=== PATIENT | female | born 1945 | race Caucasian/White ===

== ENCOUNTER → 2018-04-23 | Outpatient (CLI) | payer MEDICARE, OTHER | LOC: M WHC 08:58 | DX: M85.80 Other specified disorders of bone density and structure, unspecified site (principal); Z78.0 Asymptomatic menopausal state | CPT/HCPCS: 77080 ==

== ENCOUNTER → 2018-06-13 | Outpatient (REF) | payer MEDICARE, OTHER ==
[~2018-06-13] MED LIST: ACTO35TA9 PO; CALC600T60 PO; HYDR25TAB PO; LOSA100T50 PO; METO1TAB33 PO; MULTCAP PO; VYTO10TA22 PO
== END ==
LOC: M SFHCLERA 19:14
PROVIDERS: ATTEND Dermatology
DX: D22.72 Melanocytic nevi of left lower limb, including hip (principal)

== ENCOUNTER → 2019-06-13 | Outpatient (REF) | payer MEDICARE, OTHER ==
[~2019-06-13] MED LIST changes: +VESI5TAB2 PO
== END ==
LOC: M LAB REF 18:22
PROVIDERS: ATTEND Dermatology
DX: L57.0 Actinic keratosis (principal)

== ENCOUNTER → 2019-09-10 | Outpatient (REF) | payer MEDICARE, OTHER | LOC: M LAB REF 18:53 | PROVIDERS: ATTEND Dermatology | DX: L57.0 Actinic keratosis (principal) ==

== ENCOUNTER → 2020-04-03 | Outpatient (CLI) | payer MEDICARE, OTHER ==
[~2020-04-03] MED LIST changes: +LETR2.5T2 PO
--- NOTE | 2020-04-03 15:16 | RADONC.CN ---
Radiation Oncology Hx/Consult Radiation Oncology Consult Date of Service: Apr 03, 2020 Pt Identifier Cindy Cardozo is a 74 year old female with a history of pT2N0(sn)M0 ER/OK- HER2+ right breast cancer s/p lumpectomy and SLNB in 2008, followed by adjuvant chemotherapy, HER2-directed systemic therapy, and WBI to 48.6 Gy in 27 fractions with an additional 12 Gy in 6 fractions to the tumor bed completed 07/15/09. She has recently been diagnosed with a mammographically detected, phenotypically distinct, second right breast cancer s/p lumpectomy on 03/03/20 @ [facility], [id number] ER/OK+ HER2- Grade 2 with negative margins. She is seen today to consider adjuvant reirradiation of the right breast. Diagnosis/Treatment History Oncologic History 12/03/08 Right lumpectomy SLNB pT2N0(sn)M0 ER/OK- HER2+ Grade 2. 4.5 cm 04/25/09 TP chemotherapy complete 07/15/09 Completed WBI 48.6 Gy in 27 fractions and 12 Gy in 6 fractions to the nancy or bed 12/18/19 Right screening mammogram with calcifications lower inner breast 01/22/20 Biopsy at [facility] with IDC ER/OK+ HER2- and DCIS 03/03/20 Lumpectomy @ [facility] [id number] Grade 2 negative margins Interval History Feels well postoperatively. No pain, notes tender seroma. Does not like the appearance of the right breast now postoperatively with the lumpectomy scar midline. Notes the shape and lie of the right breast is asymmetric compared to the left. Interested in referral for reconstruction. Has never met with a plastic surgeon previously. She reports no RUE swelling or impaired ROM. Her appetite is good and her weight is stable. She reports minimal skin reaction with her prior course of RT in 2008-. Also notes she has a cataract surgery pending. Past Medical History: HTN Cataracts Arthritis Breast history: Menses @ 11 first @ 20 Menopause @ 59 HRT x 5 years OCP x 4 years Past Surgical History: Knee repleacemetn RT 2019 Family History: Sister breast cancer Social History: Non smoker Non drinker Allergies / Meds Allergies: Coded Allergies: No Known Allergies (Verified , 12/03/08) Home Meds Reported Medications Solifenacin Succinate (Vesicare) 5 Mg Tablet, 5 MG PO DAILY for 30 Days, #30 TAB 04/11/19 Multivitamin (Multivitamins) 1 Cap Cap, 1 CAP PO DAILY for 30 Days, #30 CAP 03/15/18 Calcium Carbonate (Calcium) 600 Mg Tab, 1200 MG PO BID, TAB 03/15/18 Ezetimibe/Simvastatin (Vytorin 10-20 mg Tablet) 1 Tab Tab, 1 TAB PO DAILY for 30 Days, #30 TAB 03/15/18 Metoprolol Succinate (Metoprolol Succinate) 100 Mg Tab, 100 MG PO DAILY, TAB 03/15/18 Hydrochlorothiazide (Hydrochlorothiazide) 25 Mg Tab, 25 MG PO DAILY, TAB 03/15/18 Risedronate Sodium (Actonel) 35 Mg Tab, 35 MG PO 1XWK, TAB 03/15/18 Losartan Potassium (Losartan Potassium) 100 Mg Tab, 100 MG PO DAILY for 30 Days, #30 TAB 03/15/18 Review of Systems Constitutional: Denies: Chills, Fever, Night Sweats Eyes: Denies: Pain, Vision change HEENT: Denies: Head Aches, Dysphagia, Sore Throat Skin: Denies: Rash, Lesions, Bruising Pulmonary: Denies: Dyspnea, Cough Cardiovascular: Denies: Chest Pain, Palpitations, Edema Gastrointestinal: Denies: Nausea, Vomiting, Abdominal Pain, Diarrhea Genitourinary: Denies: Dysuria, Frequency, Incontinence, Hematuria, Retention, Other Symptoms Hematologic: Denies: Bruising, Petecchia, Enlarged Lymph Nodes Musculoskeletal: Denies: Neck pain, Back pain Neurological: Denies: Weakness, Numbness, Incoordination Psych: Reports: Mood Normal; Denies: Memory Issues, Thoughts of Self Harm Vital Signs Ht 63" Wt 190 lb BMI 33 P 88 RR 18 BP 132/81 O2 97% Pain 0 Fatigue 0 General Exam: Positive: Alert, Cooperative, No Acute Distress Eye Exam: Positive: PERRLA, EOMI ENT EXAM: Positive: Mucous membr. moist/pink, Pharynx Normal Neck Exam: Negative: Thyromegaly, Lymphadenopathy Chest Exam: Positive: Normal air movement; Negative: Rales, Rhonchi, Wheezing Heart Exam: Positive: Rate Normal, Regular Rhythm Breast Exam: Negative: Symmetric Bilaterally (Left breast ptotic, right breast sits several cm higher than left), Lumps or Masses (Palpable seroma on right. No diffuse fibrosis or skin changes post-RT on right. ), Nipple Retraction, Nipple Discharge, Skin Changes, Other Breast Findings (No axillary masses BL) Abdomen Exam: Positive: Soft; Negative: Tenderness, Mass Extremity Exam: Negative: Edema, Tenderness Skin Exam: Positive: Nl turgor and temperature; Negative: Rash Neuro Exam: Positive: Normal Gait, Normal Speech, Cranial Nerves 3-12 NL Diagnostic and Laboratory Diagnostic Review Radiologic images, relevant labs and pathology reports were personally reviewed and discussed with Ms. Cardozo. Assessment and Plan Impression Ms. Cardozo is a 74 year old female with a history of pT2N0(sn)M0 ER/OK- HER2+ right breast cancer s/p lumpectomy and SLNB in 2008, followed by adjuvant chemotherapy, HER2-directed systemic therapy, and WBI to 48.6 Gy in 27 fractions with an additional 12 Gy in 6 fractions to the tumor bed completed 07/15/09. She has recently been diagnosed with a mammographically detected, phenotypically distinct, second right breast cancer s/p lumpectomy on 03/03/20 @ [facility], [id number] ER/OK+ HER2- Grade 2 with negative margins. She is seen today to consider adjuvant reirradiation of the right breast. Stage Right breast IDC [id number] ER/OK+ HER2- Grade 2 with negative margin Performance Status ECOG 0 Plan We had an extensive discussion with Ms. Cardozo regarding the diagnosis at hand and available therapeutic options. She has a small phenotypically distinct second right breast cancer @ 10 years latency from her first. This is not all together surprising and as I explained a manifestation of how well early stage breast cancer has been managed and screened for in recent decades. With respect to the prior RT course she has no discernible post RT skin or soft tissue sequelae on exam she has focal fibrosis in the areas of her lumpectomies which has caused some retraction of the right breast, but no tender or diffuse fibrotic changes from RT are noted. The skin overlying the right has no pigmentary changes or telangiectasias. Overall the tissue appears healthy and thus would surely withstand another course of RT. She mentioned that she would like a referral to plastic surgery as she desires more symmetry. I will place a referral to Dr. Black here for consultation. With respect to adjuvant radiation, she meets criteria for omission based on her pathology, unclear if the fact this is a second primary cancer affects future recurrence as de mya primaries were included in CALGB 9343. Radiation in this case would be to lower the risk of in-breast recurrence and not affect survival. She says she would take an AI as directed. We also know partial breast reirradiation is safe and effective from RTOG 1014. I offered her the option of hypofractionated PBI 40 Gy in 15 fractions with VMAT due to direct reirradiation versus the alternative of omission. Reirradiation may also affect cosmesis, but I suspect that any such effects would be mild, given the overall apparent health of the remaining right breast tissue. We discussed the logistics of receiving radiation therapy in detail including the need for a 1-time planning session. We reviewed side effects skin reaction, fatigue, implant failure post reconstruction. She would not receive any meaningful hear or lung dose given I would treat her with VMAT which would be indicated in this case. After discussing the risks, benefits and alternatives to radiation therapy, Ms. Cardozo was amenable to considering her options. All questions were answered to the patient's satisfaction. She will alert us with her final decision. We instructed the patient that if there were any questions,concerns or changes in clinical status in the interim to contact us. Recommendations Consider omission of adjuvant RT versus PBI 40 Gy in 15 fractions with VMAT due to prior whole breast RT Referral to LISA Tolbert MD Apr 03, 2020 15:16
== END ==
LOC: M ONCR 12:55
PROVIDERS: ATTEND General Practice
DX: C50.311 Malignant neoplasm of lower-inner quadrant of right female breast (principal)

== ENCOUNTER → 2020-04-24 | Outpatient (CLI) | payer MEDICARE, OTHER ==
--- NOTE | 2020-04-24 13:55 | DEXA ---
INDICATION: OSTEOPOROSIS/OSTEOPENIA. COMPARISON: The most recent comparison study is dated 23 April 2018. The most remote is dated May 17 2000. TECHNIQUE: Bone density was measured using dual-energy x-ray absorptionmetry (DEXA). FINDINGS: AP SPINE L1-L4 BMD 1.192 g/cm2 Young Adult T-Score 0.0 Age Matched Z-Score 1.7. LT FEMUR, TOTAL BMD 0.952 g/cm2 Young Adult T-Score -0.4 Age Matched Z-Score 1.3. LT NECK BMD 0.845 g/cm2 Young Adult T-Score -1.4 Age Matched Z-Score 0.6. RT FEMUR, TOTAL BMD 0.952 g/cm2 Young Adult T-Score -0.4 Age Matched Z-Score 1.3. RT NECK BMD 0.837 g/cm2 Young Adult T-Score -1.4 Age Matched Z-Score 0.5. IMPRESSION: There is normal bone density of the spine. There is low bone density of the left hip. There is low bone density of the right hip. The density of the spine has increased 11.9% since the initial exam on May 17, 2000. The density of the spine increased 0.9% since most recent exam on June 23, 2017. The density of the left hip has increased 8.7% since initial exam on 05/17/2000. The density of the left hip has decreased 3.3% since most recent exam on April 23, 2018. The density of the right hip has increased 7.2% since the initial exam on May 17, 2000. The density of the right hip has decreased 0.5% since the most recent exam on April 23, 2018. FOLLOW-UP: Recommendation for the next bone density exam: 2 years. <Electronically signed by Trino He > 04/24/20 [id number]
== END ==
LOC: M WHC 10:56
PROVIDERS: ATTEND Internal Medicine Medical Oncology
DX: M85.851 Other specified disorders of bone density and structure, right thigh (principal); M85.852 Other specified disorders of bone density and structure, left thigh

== ENCOUNTER → 2020-05-11 | Outpatient (RCR) | payer MEDICARE, OTHER | LOC: M ONCR 04-14 10:28 | PROVIDERS: ATTEND General Practice | DX: C50.311 Malignant neoplasm of lower-inner quadrant of right female breast (principal) ==

== ENCOUNTER 2020-05-14 10:41 | Outpatient (RCR) | payer MEDICARE, OTHER ==
[2020-05-22] MEDS ORDERED: MULT-90 PO (10:29)
== END 2020-06-11 ==
LOC: M ONCR 10:41
PROVIDERS: ATTEND General Practice
DX: C50.311 Malignant neoplasm of lower-inner quadrant of right female breast (principal)

== ENCOUNTER → 2020-07-18 | Outpatient (CLI) | payer MEDICARE, OTHER ==
[~2020-07-18] MED LIST changes: +HYDR-3490 PO; -HYDR25TAB PO; +MULT-90 PO
== END ==
LOC: M LABSMTC 09:00
PROVIDERS: ATTEND Anesthesiology
DX: Z01.812 Encounter for preprocedural laboratory examination (principal); Z20.822 Contact with and (suspected) exposure to COVID-19

== ENCOUNTER 2020-07-23 10:35 | Day surgery (SDC) | payer MEDICARE, OTHER ==
[~2020-07-23] VITALS: Ht 160 cm; Wt 83.9 kg
[~2020-07-23 10:35] MED LIST changes: +CEFUROXIME 1MG/0.1ML INTRACAMERAL INJ As Ordered ONE; +DUOVISC (0.50ML VISCOAT/0.55ML PROVISC) OPHTH KIT As Ordered ONE; +MIDAZOLAM INJ 2MG/2ML VIAL (J2250 PER 1MG) As Ordered ONE; +OFLOXACIN 0.3 % (OCUFLOX) OPTH SOL 5ML OS ONE; +PHENYLEPHRINE 2.5% OPHTH SOL 2ML OS ONE; +POVIDONE-IODINE 5% OPHTH PREP SOL 30ML As Ordered ONE; +PROPARACAINE 0.5% OPHTH SOL 15ML OS ONE; +TROPICAMIDE 1% OPHTH SOLN 2ML OS ONE; +fentaNYL 100 MCG/2 ML INJECTION (J3010) As Ordered ONE
--- OUTSIDE RECORDS SUMMARY | 2020-07-23 10:41 | CCD ---
Continuity of Care Document (CCD) Created on: 05/11/2020 Cindy Cardozo External Reference #: [id number] : [id number] Sex: Female Author Author Cindy VILLALTA YUSUF DO Organization Unknown Address [address] [place] [id number] Phone [phone] Care Team Providers Care Filling Hand Name Role Phone Armando Knox M.D. AUTM [phone] AUTM Unavailable Chapo Jolly M.D. AUTM [phone] Problems Active Problems Provider Date Abnormal findings on diagnostic imaging of lung Christine Sutton M.D. Onset: 07/22/2010 Pulmonary function studies abnormal Christine Sutton M.D. Onset: 07/22/2010 Essential hypertension Jamie Shea M.D. Onset: 0 Social History Type Date Description Comments Sex Female ETOH Use 1 A Week Tobacco Use Start: Unknown End: Unknown Patient is a former smoker Recreational Drug Use Denies Drug Use Tobacco Use Start: Unknown quit 66' hx:[id number] Smoking Status Reviewed: 05/11/20 quit 66' hx:sociallyx2 yrs Allergies, Adverse Reactions, Alerts Description No Known Drug Allergies Medications Active Medications SIG Qnty Indications Ordering Provide r Date HCTZ 25mg qd Unknown Metoprolol Tartrate 100mg Tablets qd Unknown Vytorin 10-20mg Tablets qd Unknown Mvi qd Unknown Calcium qd Unknown Vesicare 5mg Tablets 1 qd Unknown Losartan Potassium 25mg Tablets 1 Q Week Unknown Immunizations CPT Code Status Date Vaccine Lot # 22869 Given 03/24/2010 Influenza Vaccine Vital Signs Date Vital Result Comment 05/11/2020 8:44am BP Systolic 128 mmHg BP Diastolic 82 mmHg Heart Rate 74 /min Respiratory Rate 16 /min Height 64 inches 5'4" Weight 190.00 lb BMI (Body Mass Index) 32.6 kg/m2 [place] Body Weight 120 lb Weight 86.184 kg BSA (Body Surface Area) 1.91 m2 07/22/2010 11:36am BP Systolic 104 mmHg BP Diastolic 60 mmHg Heart Rate 60 /min O2 % BldC Oximetry 98 % Height 63 inches 5'3" Weight 200.00 lb BMI (Body Mass Index) 35.4 kg/m2 [place] Body Weight 115 lb Weight 90.720 kg Results Description No Information Available Procedures Description No Information Available Medical Devices Description No Information Available Encounters Type Date Location Provider Dx Diagnosis Office Visit 01/31/2020 1:45p [facility] Jamie francisco M.D. C50.211 Malig neoplm of upper-inner quadrant of right female breast Z85.3 Personal history of malignan t neoplasm of breast Assessments Date Code Description Provider 05/11/2020 N64.81 Ptosis of breast Yusuf Wayne, DO 05/11/2020 C50.411 Malignant neoplasm o f upper-outer quadrant of right female breast Yusuf Wayne, DO 05/11/2020 N64.89 Other specified disorders of [place] ast Yusuf Wayne, DO 01/31/2020 C50.211 Malignant neoplasm o f upper-inner quadrant of right female breast Jamie Shea M.D. 01/31/2020 Z85.3 Personal history of malignant ne oplasm of breast Jamie Shea M.D. Plan of Treatment No Information Available Functional Status Description No Information Available Mental Status Description No Information Available Referrals Refer to Dr Reason for Referral Status Appt Date Jamie Shea M.D. POSITIVE RT BREAST BIOPSY, TERESA NAVARRO MA. Scheduled 01/31/2020 [facility] [address] [place] [phone]
--- OUTSIDE RECORDS SUMMARY | 2020-07-23 10:41 | CCD ---
Author Author [facility] Organization [facility] Address Unknown Phone Unavailable Care Team Providers Care News Librarian Name Role Phone Joey Sosa MD Unavailable Unavailable Joey Sosa MD Unavailable Unavailable Joey Sosa MD Unavailable Unavailable Joey Sosa MD Unavailable Unavailable Joey Sosa MD Unavailable Unavailable Joey Sosa MD Unavailable Unavailable Joey Sosa MD Unavailable Unavailable Joey Sosa MD Unavailable Unavailable Joey Sosa MD Unavailable Unavailable Joey Sosa MD Unavailable Unavailable Joey Sosa MD Unavailable Unavailable Joey Sosa MD Unavailable Unavailable Joey Sosa MD Unavailable Unavailable Joey Sosa MD Unavailable Unavailable Joey Sosa MD Unavailable Unavailable Joey Sosa MD Unavailable Unavailable Joey Sosa MD Unavailable Unavailable Joey Sosa MD Unavailable Unavailable Joey Sosa MD Unavailable Unavailable Joey Sosa MD Unavailable Unavailable Joey Sosa MD Unavailable Unavailable Joey Sosa MD Unavailable Unavailable Joey Sosa MD Unavailable Unavailable Joey Sosa MD Unavailable Unavailable Nanavati, Bhalchandra Praveen Unavailable Unavailabl e Nanavati, Bhalchandra Praveen Unavailable Unavailabl e Nanavati, Bhalchandra Praveen Unavailable Unavailabl e Nanavati, Bhalchandra Praveen Unavailable Unavailabl e Nanavati, Bhalchandra Praveen Unavailable Unavailabl e Nanavati, Bhalchandra Praveen Unavailable Unavailabl e Nanavati, Bhalchandra Praveen Unavailable Unavailabl e Nanavati, Bhalchandra Praveen Unavailable Unavailabl e Nanavati, Bhalchandra Praveen Unavailable Unavailabl e Nanavati, Bhalchandra Praveen Unavailable Unavailabl e Nanavati, Bhalchandra Praveen Unavailable Unavailabl e Nanavati, Bhalchandra Praveen Unavailable Unavailabl e Nanavati, Bhalchandra Praveen Unavailable Unavailabl e Nanavati, Bhalchandra Praveen Unavailable Unavailabl e Nanavati, Bhalchandra Praveen Unavailable Unavailabl e Nanavati, Bhalchandra Praveen Unavailable Unavailabl e Nanavati, Bhalchandra Praveen Unavailable Unavailabl e Nanavati, Bhalchandra Praveen Unavailable Unavailabl e Nanavati, Bhalchandra Praveen Unavailable Unavailabl e Nanavati, Bhalchandra Praveen Unavailable Unavailabl e Nanavati, Bhalchandra Praveen Unavailable Unavailabl e Nanavati, Bhalchandra Praveen Unavailable Unavailabl e Nanavati, Bhalchandra Praveen Unavailable Unavailabl e Nanavati, Bhalchandra Praveen Unavailable Unavailabl e Nanavati, Bhalchandra Praveen Unavailable Unavailabl e Nanavati, Bhalchandra Praveen Unavailable Unavailabl e Nanavati, Bhalchandra Praveen Unavailable Unavailabl e Nanavati, Bhalchandra Praveen Unavailable Unavailabl e Nanavati, Bhalchandra Praveen Unavailable Unavailabl e Nanavati, Bhalchandra Praveen Unavailable Unavailabl e Nanavati, Bhalchandra Praveen Unavailable Unavailabl e Nanavati, Bhalchandra Praveen Unavailable Unavailabl e Nanavati, Bhalchandra Praveen Unavailable Unavailabl e Nanavati, Bhalchandra Praveen Unavailable Unavailabl e Nanavati, Bhalchandra Praveen Unavailable Unavailabl e Nanavati, Bhalchandra Praveen Unavailable Unavailabl e Nanavati, Bhalchandra Praveen Unavailable Unavailabl e Nanavati, Bhalchandra Praveen Unavailable Unavailabl e Nanavati, Bhalchandra Praveen Unavailable Unavailabl e Nanavati, Bhalchandra Praveen Unavailable Unavailabl e Nanavati, Bhalchandra Praveen Unavailable Unavailabl e Nanavati, Bhalchandra Praveen Unavailable Unavailabl e Nanavati, Bhalchandra Praveen Unavailable Unavailabl e Nanavati, Bhalchandra Praveen Unavailable Unavailabl e Nanavati, Bhalchandra Praveen Unavailable Unavailabl e Nanavati, Bhalchandra Praveen Unavailable Unavailabl e Nanavati, Bhalchandra Praveen Unavailable Unavailabl e Nanavati, Bhalchandra Praveen Unavailable Unavailabl e Nanavati, Bhalchandra Praveen Unavailable Unavailabl e Nanavati, Bhalchandra Praveen Unavailable Unavailabl e Nanavati, Bhalchandra Praveen Unavailable Unavailabl e Nanavati, Bhalchandra Praveen Unavailable Unavailabl e Nanavati, Bhalchandra Praveen Unavailable Unavailabl e Nanavati, Bhalchandra Praveen Unavailable Unavailabl e Nanavati, Bhalchandra Praveen Unavailable Unavailabl e Nanavati, Bhalchandra Praveen Unavailable Unavailabl e Nanavati, Bhalchandra Praveen Unavailable Unavailabl e Nanavati, Bhalchandra Praveen Unavailable Unavailabl e Nanavati, Bhalchandra Praveen Unavailable Unavailabl e Nanavati, Bhalchandra Praveen Unavailable Unavailabl e Nanavati, Bhalchandra Praveen Unavailable Unavailabl e Nanavati, Bhalchandra Praveen Unavailable Unavailabl e Nanavati, Bhalchandra Praveen Unavailable Unavailabl e Nanavati, Bhalchandra Praveen Unavailable Unavailabl e Nanavati, Bhalchandra Praveen Unavailable Unavailabl e Nanavati, Bhalchandra Praveen Unavailable Unavailabl e Nanavati, Bhalchandra Praveen Unavailable Unavailabl e Nanavati, Bhalchandra Praveen Unavailable Unavailabl e Nanavati, Bhalchandra Praveen Unavailable Unavailabl e Nanavati, Bhalchandra Praveen Unavailable Unavailabl e Nanavati, Bhalchandra Praveen Unavailable Unavailabl e Nanavati, Bhalchandra Praveen Unavailable Unavailabl e Nanavati, Bhalchandra Praveen Unavailable Unavailabl e Erin BINGHAM, James Sharma. Unavailable + Erin [place], James Sharma. Unavailable Erin [place], James Sharma. Unavailable + SHIRA, MAQBOOL PAM MD Unavailable Unavailable SHIRA, MAQBOOL PAM MD Unavailable Unavailable SHIRA, MAQBOOL PAM MD Unavailable Unavailable SHIRA, MAQBOOL PAM MD Unavailable Unavailable SHIRA, MAQBOOL PAM MD Unavailable Unavailable SHIRA, MAQBOOL PAM MD Unavailable Unavailable SHIRA, MAQBOOL PAM MD Unavailable Unavailable SHIRA, MAQBOOL PAM MD Unavailable Unavailable SHIRA, MAQBOOL PAM MD Unavailable Unavailable SHIRA, MAQBOOL PAM MD Unavailable Unavailable SHIRA, MAQBOOL PAM MD Unavailable Unavailable SHIRA, MAQBOOL PAM MD Unavailable Unavailable SHIRA, MAQBOOL PAM MD Unavailable Unavailable SHIRA, MAQBOOL PAM MD Unavailable Unavailable SHIRA, MAQBOOL PAM MD Unavailable Unavailable SHIRA, MAQBOOL PAM MD Unavailable Unavailable SHIRA, MAQBOOL PAM MD Unavailable Unavailable SHIRA, MAQBOOL PAM MD Unavailable Unavailable SHIRA, MAQBOOL PAM MD Unavailable Unavailable SHIRA, MAQBOOL PAM MD Unavailable Unavailable SHIRA, MAQBOOL PAM MD Unavailable Unavailable SHIRA, MAQBOOL PAM MD Unavailable Unavailable SHIRA, MAQBOOL PAM MD Unavailable Unavailable SHIRA, MAQBOOL PAM MD Unavailable Unavailable SHIRA, MAQBOOL PAM MD Unavailable Unavailable SHIRA, MAQBOOL PAM MD Unavailable Unavailable SHIRA, MAQBOOL PAM MD Unavailable Unavailable SHIRA, MAQBOOL PAM MD Unavailable Unavailable SHIRA, MAQBOOL PAM MD Unavailable Unavailable SHIRA, MAQBOOL PAM MD Unavailable Unavailable SHIRA, MAQBOOL PAM MD Unavailable Unavailable SHIRA, MAQBOOL PAM MD Unavailable Unavailable SHIRA, MAQBOOL PAM MD Unavailable Unavailable SHIRA, MAQBOOL PAM MD Unavailable Unavailable SHIRA, MAQBOOL PAM MD Unavailable Unavailable SHIRA, MAQBOOL PAM MD Unavailable Unavailable SHIRA, MAQBOOL PAM MD Unavailable Unavailable SHIRA, MAQBOOL PAM MD Unavailable Unavailable SHIRA, MAQBOOL PAM MD Unavailable Unavailable SHIRA, MAQBOOL PAM MD Unavailable Unavailable SHIRA, MAQBOOL PAM MD Unavailable Unavailable SHIRA, MAQBOOL PAM MD Unavailable Unavailable SHIRA, MAQBOOL PAM MD Unavailable Unavailable SHIRA, MAQBOOL PAM MD Unavailable Unavailable SHIRA, MAQBOOL PAM MD Unavailable Unavailable SHIRA, MAQBOOL PAM MD Unavailable Unavailable SHIRA, MAQBOOL PAM MD Unavailable Unavailable SHIRA, MAQBOOL PAM MD Unavailable Unavailable SHIRA, MAQBOOL PAM MD Unavailable Unavailable SHIRA, MAQBOOL PAM MD Unavailable Unavailable SHIRA, MAQBOOL PAM MD Unavailable Unavailable SHIRA, MAQBOOL PAM MD Unavailable Unavailable SHIRA, MAQBOOL PAM MD Unavailable Unavailable SHIRA, MAQBOOL PAM MD Unavailable Unavailable SHIRA, MAQBOOL PAM MD Unavailable Unavailable SHIRA, MAQBOOL PAM MD Unavailable Unavailable SHIRA, MAQBOOL PAM MD Unavailable Unavailable SHIRA, MAQBOOL PAM MD Unavailable Unavailable SHIRA, MAQBOOL PAM MD Unavailable Unavailable SHIRA, MAQBOOL PAM MD Unavailable Unavailable SHIRA, MAQBOOL PAM MD Unavailable Unavailable SHIRA, MAQBOOL PAM MD Unavailable Unavailable SHIRA, MAQBOOL PAM MD Unavailable Unavailable SHIRA, MAQBOOL PAM MD Unavailable Unavailable SHIRA, MAQBOOL PAM MD Unavailable Unavailable SHIRA, MAQBOOL PAM MD Unavailable Unavailable SHIRA, MAQBOOL PAM MD Unavailable Unavailable SHIRA, MAQBOOL PAM MD Unavailable Unavailable SHIRA, MAQBOOL PAM MD Unavailable Unavailable SHIRA, MAQBOOL PAM MD Unavailable Unavailable SHIRA, MAQBOOL PAM MD Unavailable Unavailable NIKOLAY SILVA MD Unavailable Unavailable NIKOLAY SILVA MD Unavailable Unavailable NIKOLAY SILVA MD Unavailable Unavailable NIKOLAY SILVA MD Unavailable Unavailable HARLEY, O CHICO [place] Unavailable Unavailable HARLEY, O CHICO [place] Unavailable Unavailable HARLEY, O CHICO [place] Unavailable Unavailable HARLEY, O CHICO MD Unavailable Unavailable HARLEY, O CHICO [place] Unavailable Unavailable HARLEY, O CHICO MD Unavailable Unavailable HARLEY, O CHICO MD Unavailable Unavailable HARLEY, O CHICO MD Unavailable Unavailable HARLEY, O CHICO MD Unavailable Unavailable HARLEY, O CHICO MD Unavailable Unavailable HARLEY, O CHICO MD Unavailable Unavailable HARLEY, O CHICO MD Unavailable Unavailable HARLEY, O CHICO MD Unavailable Unavailable HARLEY, O CHICO MD Unavailable Unavailable HARLEY, O CHICO MD Unavailable Unavailable HARLEY, O CHICO MD Unavailable Unavailable HARLEY, O CHICO MD Unavailable Unavailable HARLEY, O CHICO MD Unavailable Unavailable HARLEY, O CHICO MD Unavailable Unavailable HARLEY, O CHICO [place] Unavailable Unavailable HARLEY, O CHICO [place] Unavailable Unavailable HARLEY, O CHICO [place] Unavailable Unavailable HARLEY, O CHICO [place] Unavailable Unavailable HARLEY, O CHICO [place] Unavailable Unavailable HARLEY, O CHICO [place] Unavailable Unavailable HARLEY, O CHICO MD Unavailable Unavailable HARLEY, O CHICO MD Unavailable Unavailable HARLEY, O CHICO MD Unavailable Unavailable HARLEY, O CHICO MD Unavailable Unavailable HARLEY, O CHICO MD Unavailable Unavailable HARLEY, O CHICO MD Unavailable Unavailable HARLEY, O CHICO MD Unavailable Unavailable HARLEY, O CHICO MD Unavailable Unavailable HARLEY, O CHICO MD Unavailable Unavailable HARLEY, O CHICO MD Unavailable Unavailable HARLEY, O CHICO [place] Unavailable Unavailable HARLEY, O CHICO [place] Unavailable Unavailable HARLEY, O CHICO [place] Unavailable Unavailable HARLEY, O CHICO [place] Unavailable Unavailable HARLEY, O CHICO [place] Unavailable Unavailable HARLEY, O CHICO [place] Unavailable Unavailable NIKOLAY SILVA MD Unavailable Unavailable NIKOLAY SILVA MD Unavailable Unavailable NIKOLAY SILVA MD Unavailable Unavailable NIKOLAY SILVA MD Unavailable Unavailable NIKOLAY SILVA MD Unavailable Unavailable NIKOLAY SILVA MD Unavailable Unavailable NIKOLAY SILVA MD Unavailable Unavailable NIKOLAY SILVA MD Unavailable Unavailable SHIRA, MAQBOOL PAM MD Unavailable Unavailable SHIRA, MAQBOOL PAM MD Unavailable Unavailable SHIRA, MAQBOOL PAM MD Unavailable Unavailable SHIRA, MAQBOOL PAM MD Unavailable Unavailable SHIRA, MAQBOOL PAM MD Unavailable Unavailable SHIRA, MAQBOOL PAM MD Unavailable Unavailable SHIRA, MAQBOOL PAM MD Unavailable Unavailable SHIRA, MAQBOOL PAM MD Unavailable Unavailable SHIRA, MAQBOOL PAM MD Unavailable Unavailable SHIRA, MAQBOOL PAM MD Unavailable Unavailable SHIRA, MAQBOOL PAM MD Unavailable Unavailable SHIRA, MAQBOOL PAM MD Unavailable Unavailable SHIRA, MAQBOOL PAM MD Unavailable Unavailable SHIRA, MAQBOOL PAM MD Unavailable Unavailable SHIRA, MAQBOOL PAM MD Unavailable Unavailable SHIRA, MAQBOOL PAM MD Unavailable Unavailable SHIRA, MAQBOOL PAM MD Unavailable Unavailable SHIRA, MAQBOOL PAM MD Unavailable Unavailable SHIRA, MAQBOOL PAM MD Unavailable Unavailable SHIRA, MAQBOOL PAM MD Unavailable Unavailable SHIRA, MAQBOOL PAM MD Unavailable Unavailable SHIRA, MAQBOOL PAM MD Unavailable Unavailable SHIRA, MAQBOOL PAM MD Unavailable Unavailable SHIRA, MAQBOOL PAM MD Unavailable Unavailable SHIRA, MAQBOOL PAM MD Unavailable Unavailable SHIRA, MAQBOOL PAM MD Unavailable Unavailable SHIRA, MAQBOOL PAM MD Unavailable Unavailable SHIRA, MAQBOOL PAM MD Unavailable Unavailable SHIRA, MAQBOOL PAM MD Unavailable Unavailable SHIRA, MAQBOOL PAM MD Unavailable Unavailable SHIRA, MAQBOOL PAM MD Unavailable Unavailable SHIRA, MAQBOOL PAM MD Unavailable Unavailable SHIRA, MAQBOOL PAM MD Unavailable Unavailable SHIRA, MAQBOOL PAM MD Unavailable Unavailable SHIRA, MAQBOOL PAM MD Unavailable Unavailable SHIRA, MAQBOOL PAM MD Unavailable Unavailable SHIRA, MAQBOOL PAM MD Unavailable Unavailable SHIRA, MAQBOOL PAM MD Unavailable Unavailable SHIRA, MAQBOOL PAM MD Unavailable Unavailable SHIRA, MAQBOOL PAM MD Unavailable Unavailable SHIRA, MAQBOOL PAM MD Unavailable Unavailable SHIRA, MAQBOOL PAM MD Unavailable Unavailable SHIRA, MAQBOOL PAM MD Unavailable Unavailable SHIRA, MAQBOOL PAM MD Unavailable Unavailable SHIRA, MAQBOOL PAM MD Unavailable Unavailable SHIRA, MAQBOOL PAM MD Unavailable Unavailable SHIRA, MAQBOOL PAM MD Unavailable Unavailable SHIRA, MAQBOOL PAM MD Unavailable Unavailable SHIRA, MAQBOOL PAM MD Unavailable Unavailable SHIRA, MAQBOOL PAM MD Unavailable Unavailable SHIRA, MAQBOOL PAM MD Unavailable Unavailable SHIRA, MAQBOOL PAM MD Unavailable Unavailable SHIRA, MAQBOOL PAM MD Unavailable Unavailable SHIRA, MAQBOOL PAM MD Unavailable Unavailable SHIRA, MAQBOOL PAM MD Unavailable Unavailable SHIRA, MAQBOOL PAM MD Unavailable Unavailable SHIRA, MAQBOOL PAM MD Unavailable Unavailable SHIRA, MAQBOOL PAM MD Unavailable Unavailable SHIRA, MAQBOOL PAM MD Unavailable Unavailable SHIRA, MAQBOOL PAM MD Unavailable Unavailable SHIRA, MAQBOOL PAM MD Unavailable Unavailable SHIRA, MAQBOOL PAM MD Unavailable Unavailable SHIRA, MAQBOOL PAM MD Unavailable Unavailable SHIRA, MAQBOOL PAM MD Unavailable Unavailable SHIRA, MAQBOOL PAM MD Unavailable Unavailable SHIRA, MAQBOOL PAM MD Unavailable Unavailable SHIRA, MAQBOOL PAM MD Unavailable Unavailable BogXavier umana MD Unavailable Unavailable Xavier Cardona MD Unavailable Unavailable Xavier Cardona MD Unavailable Unavailable Xavier Cardona MD Unavailable Unavailable Xavier Cardona MD Unavailable Unavailable Xavier Cardona MD Unavailable Unavailable Xavier Cardona MD Unavailable Unavailable Xavier Cardona MD Unavailable Unavailable Xavier Cardona MD Unavailable Unavailable Xavier Cardona MD Unavailable Unavailable Xavier Cardona MD Unavailable Unavailable Xavier Cardona MD Unavailable Unavailable Xavier Cardona MD Unavailable Unavailable Xavier Cardona MD Unavailable Unavailable Bogosian, Xavier Douglas MD Unavailable Unavailable Bogosian, Xavier Douglas MD Unavailable Unavailable Bogosian, Xavier Douglas MD Unavailable Unavailable Bogosian, Xavier Douglas MD Unavailable Unavailable Bogosian, Xavier Douglas MD Unavailable Unavailable Bogosian, Xavier Douglas MD Unavailable Unavailable Bogosian, Xavier Douglas MD Unavailable Unavailable Bogosian, Xavier Douglas MD Unavailable Unavailable Bogosian, Xavier Douglas MD Unavailable Unavailable Bogosian, Xavier Douglas MD Unavailable Unavailable Bogosian, Xavier Douglas MD Unavailable Unavailable Bogosian, Xavier Douglas MD Unavailable Unavailable Bogosian, Xavier Douglas MD Unavailable Unavailable Bogosian, Xavier Douglas MD Unavailable Unavailable Bogosian, Xavier Douglas MD Unavailable Unavailable Bogosian, Xavier Douglas MD Unavailable Unavailable Bogosian, Xavier Douglas MD Unavailable Unavailable Bogosian, Xavier Douglas MD Unavailable Unavailable Bogosian, Xavier Douglas MD Unavailable Unavailable Bogosian, Xavier Douglas MD Unavailable Unavailable Bogosian, Xavier Douglas MD Unavailable Unavailable Bogosian, Xavier Douglas MD Unavailable Unavailable Bogosian, Xavier Douglas MD Unavailable Unavailable Bogosian, Xavier Douglas MD Unavailable Unavailable Bogosian, Xavier Douglas MD Unavailable Unavailable Bogosian, Xavier Douglas MD Unavailable Unavailable Bogosian, Xavier Douglas MD Unavailable Unavailable Bogosian, Xavier Douglas MD Unavailable Unavailable Bogosian, Xavier Douglas MD Unavailable Unavailable Bogosian, Xavier Douglas MD Unavailable Unavailable Bogosian, Xavier Douglas MD Unavailable Unavailable Bogosian, Xavier Douglas MD Unavailable Unavailable Bogositennille, Xavier Douglas MD Unavailable Unavailable Bogosian, Xavier Douglas MD Unavailable Unavailable Bogosian, Xavier Douglas MD Unavailable Unavailable Bogosian, Xavier Douglas MD Unavailable Unavailable Bogositennille, Xavier Douglas MD Unavailable Unavailable Bogositennille, Xavier Douglas MD Unavailable Unavailable Bogositennille, Xavier Douglas MD Unavailable Unavailable Bogositennille, Xavier Douglas MD Unavailable Unavailable Bogosian, Xavier Douglas MD Unavailable Unavailable Bogosian, Xavier Douglas MD Unavailable Unavailable Bogosian, Xavier Douglas MD Unavailable Unavailable Bogositennille, Xavier Douglas MD Unavailable Unavailable Bogositennille, Xavier Douglas MD Unavailable Unavailable Bogdong, Xavier Douglas MD Unavailable Unavailable Bogositennille, Xavier Douglas MD Unavailable Unavailable Bogosian, Xavier Douglas MD Unavailable Unavailable Bogosian, Xavier Douglas MD Unavailable Unavailable Bogosian, Xavier Douglas MD Unavailable Unavailable Bogosian, P Misael [place] Unavailable Unavailable Bogosian, P Misael [place] Unavailable Unavailable Bogosian, P Misael [place] Unavailable Unavailable Bogosian, P Misael [place] Unavailable Unavailable Bogosian, P Misael [place] Unavailable Unavailable Bogosian, P Misael [place] Unavailable Unavailable Bogosian, P Misael Unavailable Unavailable Bogosian, P Misael [place] Unavailable Unavailable Bogosian, P Misael [place] Unavailable Unavailable Bogosian, P Misael [place] Unavailable Unavailable Bogosian, P Misael Unavailable Unavailable Bogosian, P Misael Unavailable Unavailable Bogosian, P Misael MD Unavailable Unavailable Lopez, R Riya ABSTRACT MAKER Unavailable Unavailable Lopez, R Riya ABSTRACT MAKER Unavailable Unavailable Lopez, R Riya ABSTRACT MAKER Unavailable Unavailable Lopez, R Riya ABSTRACT MAKER Unavailable Unavailable Lopez, R Riya ABSTRACT MAKER Unavailable Unavailable Lopez, R Riya ABSTRACT MAKER Unavailable Unavailable Lopez, R Riya ABSTRACT MAKER Unavailable Unavailable Lopez, R Riya ABSTRACT MAKER Unavailable Unavailable Lopez, R Riya ABSTRACT MAKER Unavailable Unavailable Lopez, R Riya ABSTRACT MAKER Unavailable Unavailable Lopez, R Riya ABSTRACT MAKER Unavailable Unavailable Lopez, R Riya ABSTRACT MAKER Unavailable Unavailable Lopez, R Riya ABSTRACT MAKER Unavailable Unavailable Lopez, R Riya ABSTRACT MAKER Unavailable Unavailable Lopez, R Riya ABSTRACT MAKER Unavailable Unavailable Lopez, R Riya ABSTRACT MAKER Unavailable Unavailable Lopez, R Riya ABSTRACT MAKER Unavailable Unavailable Lopez, R Riya ABSTRACT MAKER Unavailable Unavailable Lopez, R Riya ABSTRACT MAKER Unavailable Unavailable Lopez, R Riya ABSTRACT MAKER Unavailable Unavailable Lopez, R Riya ABSTRACT MAKER Unavailable Unavailable Lopez, R Riya ABSTRACT MAKER Unavailable Unavailable Lopez, R Riya ABSTRACT MAKER Unavailable Unavailable Lopez, R Riya ABSTRACT MAKER Unavailable Unavailable Lopez, R Riya ABSTRACT MAKER Unavailable Unavailable Lopez, R Riya ABSTRACT MAKER Unavailable Unavailable Lopez, R Riya ABSTRACT MAKER Unavailable Unavailable Lopez, R Riya ABSTRACT MAKER Unavailable Unavailable Lopez, R Riya ABSTRACT MAKER Unavailable Unavailable Lopez, R Riya ABSTRACT MAKER Unavailable Unavailable Lopez, R Riya ABSTRACT MAKER Unavailable Unavailable Lopez, R Riya ABSTRACT MAKER Unavailable Unavailable Linda REEVES DO Unavailable [phone] Linda REEVES DO Unavailable [phone] Linda REEVES DO Unavailable [phone] Linda REEVES DO Unavailable [phone] NEAL, A. GRACIA DO Unavailable [phone] NEALLindaEW DO Unavailable [phone] NEALLindaEW DO Unavailable [phone] NEALLindaEW DO Unavailable [phone] NEALLindaEW DO Unavailable [phone] NEAL JamesonAneudy GRACIA DO Unavailable [phone] NEAL, Linda LEAVITTEW DO Unavailable [phone] NEAL, Linda LEAVITTEW DO Unavailable [phone] NEAL, JamesonAneudy GRACIA DO Unavailable [phone] NEAL, JamesonAneudy GRACIA DO Unavailable [phone] NEAL, Linda LEAVITTEW DO Unavailable [phone] NEAL JamesonAneudy GRACIA DO Unavailable [phone] NEAL JamesonAneudy GRACIA DO Unavailable [phone] NEAL, Linda LEAVITTEW DO Unavailable [phone] NEAL Linda LEAVITTEW DO Unavailable [phone] NEAL JamesonAneudy GRACIA DO Unavailable [phone] NEAL, Linda LEAVITTEW DO Unavailable [phone] Dani, J Connie Unavailable Unavailable Dani, J Connie Unavailable Unavailable Dani, J Connie Unavailable Unavailable Dani, J Connie Unavailable Unavailable Dani, J Connie Unavailable Unavailable Dani, J Connie Unavailable Unavailable Dani, J Connie Unavailable Unavailable Dani, J Connie Unavailable Unavailable Dani, J Connie Unavailable Unavailable Dani, J Connie Unavailable Unavailable Dani, J Connie Unavailable Unavailable Dani, J Connie Unavailable Unavailable Dani, J Connie Unavailable Unavailable Dani, J Connie Unavailable Unavailable Dani, J Connie Unavailable Unavailable Dani, J Connie Unavailable Unavailable Dani, J Connie Unavailable Unavailable Dani, J Connie Unavailable Unavailable Dani, J Connie Unavailable Unavailable Dani, J Connie Unavailable Unavailable Dani, J Connie Unavailable Unavailable Dani, J Connie Unavailable Unavailable Dani, J Connie Unavailable Unavailable Dani, J Connie Unavailable Unavailable Gena Louise Unavailable Unavailable Re-disclosure Warning The records that you are about to access may contain information from federally-assisted alcohol or drug abuse programs. If such information is present, then the following federally mandated warning applies: This information has been disclosed to you from records protected by federal confidentiality rules (42 CFR part 2). The federal rules prohibit you from making any further disclosure of this information unless further disclosure is expressly permitted by the written consent of the person to whom it pertains or as otherwise permitted by 42 CFR part 2. A general authorization for the release of medical or other information is NOT sufficient for this purpose. The Federal rules restrict any use of the information to criminally investigate or prosecute any alcohol or drug abuse patient.The records that you are about to access may contain highly sensitive health information, the redisclosure of which is protected by Article 27-F of the [facility] Public Health law. If you continue you may have access to information: Regarding HIV / AIDS; Provided by facilities licensed or operated by the [facility] Office of Mental Health; or Provided by the [facility] Office for People With Developmental Disabilities. If such information is present, then the following [facility] mandated warning applies: This information has been disclosed to you from confidential records which are protected by state law. State law prohibits you from making any further disclosure of this information without the specific written consent of the person to whom it pertains, or as otherwise permitted by law. Any unauthorized further disclosure in violation of state law may result in a fine or skilled nursing sentence or both. A general authorization for the release of medical or other information is NOT sufficient authorization for further disc losure. Allergies and Adverse Reactions Type Description Substance Reaction Status Data Source(s ) Allergy to substance No Known Allergies No known allergies (situation ) ETHAN (Jaron Joiner MD [facility]) No Known Allergies No Known Allergies [facility] Family History Family Member Name Family Member Gender Family Member Status Date o f Status Description Data Source(s) Unknown Unknown Encounters Encounter Providers Location Date Indications Data Source(s ) Office Visit, Est Pt., Level [id number] [place] [address] 06/15/2020 12:00:00 AM EST [id number] ([facility] [facility]) Outpatient<td ID="encounterTypeDescripti onID0">NEW PATIENT WITH REFERRAL</td><td>Gracia Reeves DO</td><td>Jaron Raiv MD [facility]</td><td>05/28/2020</td><td>8:37AM</td><td>10:08AM</td><td><content ID="encounterDiagnosisID0-0">Dry Eye Syndrome</content>, <content ID="encounterDiagnosisID0-1">Cataract Senile Nuclear</content>, <content ID="encounterDiagnosisID0-2">Vitreous Disorders Degeneration</content></td> Attender: GRACIA Quiñonez MD [facility] 05/28/2020 08:37:00 AM EST - 05/28/2020 10:08:00 AM EST Vitreous Disorders DegenerationCataract Senile NuclearDry Eye Syndrome ANJEL (Jaron Joiner MD [facility]) Vitreous Disorders Degeneration Cataract Senile Nuclear Dry Eye Syndrome Outpatient Admitter: PAM SILVA MDReferrer: PAM SILVA MD 02/14/2020 12:00:00 AM EDT Malignant neoplasm of unspecified site o f unspecified female breast [facility] Malignant neoplasm of unspecified site o f unspecified female breast Outpatient Attender: Riya Lopez NPReferrer: PAM Guerra MD 02/12/2020 03:41:35 PM EDT [facility] Outpatient Attender: Joey Sosa MDReferrer: PAM SILVA MD 02/07/2020 12:00:00 AM [facility] Outpatient Attender: Connie Louise 02/07/2020 12:00:00 AM [facility] Outpatient Attender: Joey Sosa MDReferrer: PAM SILVA MD 02/07/2020 12:00:00 AM [facility] Outpatient Attender: Praveen Omalley 02/07/2020 12:00:00 AM [facility] Outpatient Attender: Connie Louise 02/07/2020 12:00:00 AM [facility] Recurring Patient Attender: Mac Khan MDReferrer: Misael gross MD 02/05/2020 01:51:19 PM EDT [facility] Outpatient Attender: CHICO Mtz/Itzel/Jono/Jenni indl 01/31/2020 01:45:00 PM EDT MEDENT ([facility], ) Outpatient Referrer: PAM SILVA MD 01/31/2020 12:00:00 A M EDT [facility] Recurring Patient Referrer: PAM SILVA MD 01/27/2020 06: 54:57 AM EDT [facility] 01/22/2020 08:13:01 AM EDT [facility] 12/23/2019 10:09:33 AM EDT [facility] Recurring Patient Referrer: PAM SILVA MD 12/18/2019 03: 02:29 PM EDT [facility]patient 12/18/2019 01:58:18 PM EDT [facility] Dermatology [address] [place] [phone] 09/10/2019 12:00:00 AM EDT eCW1 ([facility]) Outpatient Attender: PAM SILVA MDConsultant: PAM Guerra MD 08/19/2019 12:01:00 PM EDT - 08/19/2019 01:01:00 PM EDT [facility] [address] [facility], [facility] [id number] 06/13/2019 12:00:00 AM EST eCW1 ([facility]) Medications Medication Brand Name Start Date Product Form Dose Route Admi nistrative Instructions Pharmacy Instructions Status Indications Reaction Description Data Source(s) letrozole 2.5 MG Oral Tablet [Femara] Femara 2.5 MG Femara 2 .5 MG 06/15/2020 12:00:00 AM EST 1.0 {tablet} active Fe carol 2.5 MG [facility] Hydrochlorothiazide 25 MG Oral Tablet hydroCHLOROthiaz nadiya 25 MG Oral Tablet hydroCHLOROthiazide 25 MG Oral Tablet 05/28/2020 12:00:00 AM EST 1 active hydrochlorothiazide 25 MG Oral T [facility] ANJEL (Jaron Joiner MD [facility]) Multivitamin Oral Tablet Multivitamin Oral Tablet 05/28/2020 12:00: 00 AM EST 1 active Multivitamin ANJEL (Ingrid Joiner MD [facility]) Calcium 600 MG Oral Tablet Calcium 600 MG Oral Tablet 2019 12:00:00 AM EST 1 active Calcium ANJEL (Jaron Joiner MD [facility]) ezetimibe 10 MG / Simvastatin 20 MG Oral Tablet [Vytorin] Vytorin 10-20 MG Oral Tablet Vytorin 10-20 MG Oral Tablet 05/28/2020 12:00:00 AM EST 1 active ezetimibe 10 MG / simvastatin 20 MG Oral Tablet [Vytorin] ANJEL (Jaron Joiner MD [facility]) Metoprolol 100 MG Oral Tablet Metoprolol 100 MG Oral Tablet 05/28/2020 12:00:00 AM EST 1 active Metoprolol GREENW AY (Jaron Joiner MD [facility]) Losartan Potassium 100 MG Oral Tablet Losartan Potassium 100 MG Oral Tablet 05/28/2020 12:00:00 AM EST 1 active losartan potassium 100 MG Oral Tablet ANJEL (Jaron Joiner MD [facility]) letrozole 2.5 MG Oral Tablet Letrozole 2.5 MG Oral Tab let Letrozole 2.5 MG Oral Tablet 05/28/2020 12:00:00 AM EST 1 active letrozole 2.5 MG Oral Tablet ANJEL (Jaron Joiner MD [facility]) solifenacin succinate 5 MG Oral Tablet [VESICARE] VESI care 5 MG Oral Tablet VESIcare 5 MG Oral Tablet 05/28/2020 12:00:00 AM EST 1 active solifenacin succinate 5 MG Oral Tablet [Vesicare] ANJEL (Jaron Joiner MD [facility]) Albuterol 0.83 MG/ML Inhalant Solution Albuterol Sulfate 0 07/28/2019 12:00:00 AM EST active MEDENT ([facility]) Doxycycline Monohydrate 100 MG Oral Capsule Doxycycline [place] hydrate 07/28/2019 12:00:00 AM EST ORAL active M EDENT ([facility]) Insurance Providers Payer name Policy type / Coverage type Policy ID Covered republican ID Covered republican's relationship to benavidez Policy Benavidez Plan Information MEDICARE [id number] T53 [facility] [id number] MEDICARE [id number] SP [id number] Medicare Part B [facility] Other 0 Se lf 0 MVP H [id number] Self [id number] MEDICARE A [id number] Self [id number] A DME Jurisdiction A NHIC C [id number] SELF [id number] Medicare C [id number] SELF [id number] T53 MVP Healthcare F [id number] SELF [id number] MVP H [id number] Self [id number] Medicare [facility] [id number] 18 [id number] MVP [id number] 18 [id number] 000 MEDICARE PART A -O/P [id number] 18 [id number] [employer] HE[employer] INSURANCE [employer]-O/P [id number] 18 [id number] MEDICARE PART A -O/P [id number] 18 [id number] ANSI-Not a Secondary Insurance [id number] ANSI-Medicare Part B [id number] MVP [id number] Ingrid [id number] 000 MEDICARE [id number] Ingrid [id number] T53 MVP PI PI MEDICARE PI PI ANSI-Not a Secondary Insurance [id number] ANSI-Medicare Part B [id number] MEDICARE [id number] SP [id number] A MEDICARE [id number] SP [id number] A MVP HEALTH CARE [id number] SP [id number] DME Jurisdiction A NHIC C [id number] SELF [id number] Medicare C [id number] SELF [id number] A Medicare [facility] [id number] 18 [id number] [facility] HEALTH INSURANCE COMPANY-CL[facility] [id number] 01 [id number] MEDICARE PART A -CLINIC [id number] 18 [id number] [facility] Commercial Self Medicare Natl Gov't Servi Medicare Primary Self RAJ ZALDIVAR [id number] SP [id number] MEDICARE -O/P [id number] 18 [id number] [facility] [id number] 18 [id number] 000 Problems, Conditions, and Diagnoses Code Display Name Description Problem Type Effective Dates Data Source(s) D22.71 [id number] Melanocytic nevi of right lower limb, inc luding hip Problem 06/15/2020 12:00:00 AM EST [facility] D22.72 [id number] Melanocytic nevi of left lower l imb, including hip Problem 06/15/2020 12:00:00 AM EST eCW1 ([facility]) D22.4 792549202 Melanocytic nevi of scalp and neck Proble m 06/15/2020 12:00:00 AM EST [facility]) 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 Problem 12:00:00 AM EST [facility]) D22.61 441978980 Melanocytic nevi of right upper limb, including shoulder Problem 06/15/2020 12:00:00 AM EST eCW1 ([facility]) D22.62 [id number] Melanocytic nevi of left upper l imb, including shoulder Problem 06/15/2020 12:00:00 AM EST eCW1 ([facility]) 379.21 Vitreous Disorders Degeneration Vitreous Disorders Deg eneration Problem 05/29/2020 12:00:00 AM EST ANJEL (Jaron Joiner MD [facility]) 375.15 Dry Eye Syndrome Dry Eye Syndrome Problem 05/29/2020 12 :00:00 AM EST ANJEL (Jaron Joiner MD [facility]) 366.16 Cataract Senile Nuclear Cataract Senile Nuclear Proble m 05/29/2020 12:00:00 AM EST ANJEL (Jaron Joiner MD [facility]) [id number] Essential hypertension Essential hypertension Problem 01/31/2020 12:00:00 AM EDT IRENE ([facility], ) C50.919 Malignant neoplasm of unspecified site o f unspecified female breast Malignant neoplasm of unspecified site of unspecified female breast Diagnosis 02/14/2020 02:24:00 PM EDT [facility] Z853 Personal history of malignant neoplasm o f breast Personal history of malignant neoplasm of breast Diagnosis 08/19/2019 12:01:00 PM EDT [facility] M1380 Other specified arthritis, unspecified s ite Other specified arthritis, unspecified site Diagnosis 08/19/2019 12:01:00 PM EDT [facility] X61630 Pain in left leg Pain in left leg Diagnosis 08/19/2019 12 :01:00 PM EDT [facility] L03462 Pain in left hip Pain in left hip Diagnosis 08/19/2019 12 :01:00 PM EDT [facility] Surgeries/Procedures Procedure Description Date Indications Data Source(s) Surgical / procedural history Knee Repl acement October 2018, Breast Cancer Surgery 2019 Surgical / procedural history Knee Repl acement October 2018, Breast Cancer Surgery 2020 05/28/2020 12:00:00 AM EST ANJEL (Shan Joiner MD [facility]) Medical Eye Exam Medical Eye Exam 05/28/2020 12:00:00 AM EST ANJEL (Jaron Joiner MD [facility]) TANGNTL BX SKIN SINGLE LES 09/10/2019 12:00:00 AM EDT [facility] DESTROY BENIGN/PREMLG LESION 09/10/2019 12:00:00 AM ED T [facility]CW[facility]) Office Visit, Est Pt., Level 4 PC 06/13/2019 12:00:00 AM EST [facility]CW1 [facility]) DESTROY LESIONS, 2-14 06/13/2019 12:00:00 AM EST eCW1 [facility]) DESTRUCT B9 LESION 1-14 06/13/2019 12:00:00 AM EST [facility]CW[facility]) Results ID Date Data Source [id number] 07/18/2020 09:15:00 AM EST [facility] Name Value Range Interpretation Code Description Data Vivien rce(s) Supporting Document(s) SARS coronavirus 2 RNA Not Detected [facility] [place] This lab was ordered by [facility] and reported by [facility]. ID Date Data Source 03/02/2020 04:10:00 PM EDT [facility] Name Value Range Interpretation Code Description Data Vivien rce(s) Supporting Document(s) SARS coronavirus 2 RNA panel N [facility] This lab was ordered by [facility] and reported by [facility]. 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 CALCIFICATIONS: Present.ESTROGEN RECEPTORS: Positive (moderate to strong intensity in 95% of tumorcells).PROGESTERONE RECEPTORS: Positive (moderate to strong intensity in 95% oftumor cells).HER2: Negative (1+). Electronically Signed By Al Pabon MD;, Attending Pathologist02/24/2020 09:05:04 Gross DescriptionReceived from [facility] in [place], [place], are 6 H and E stained slides and 7specially stained slides labeled [id number], with the correspondingpathology report. Microscopic DescriptionThe biopsy contains at least two small foci of invasive ductal carcinomaamong more prominent DCIS. At least one of the invasive carcinoma focimeasures greater than 1 mm in greatest extent. Given the small samplingof the invasive component in the biopsy tissue, accurate grading is notpossible but the histologic changes fall in the spectrum of Grade 1-2.This report may include one or more immunohistochemical stain results thatuse analyte specific reagents. All positive and negative controls havebeen reviewed by the attending pathologist and are satisfactory. The testswere developed and their performance characteristics determined by [facility] Pathology department. They have not been cleared or approved by the USFood and Drug Administration. The FDA has determined that such clearanceor approval is not necessary. Name Value Range Interpretation Code Description Data Vivien rce(s) Supporting Document(s) ID Date Data Source [id number] 02/12/2020 03:41:35 PM EDT [facility], PCName: Cindy ConchitaB: 1945Provider: David Lopez: 02/05/2020 History of Present IllnessIs here today for follow-up of her right knee and her left hip. She notes her right knee is doing excellent at this time her left hip is not bothering her anymore either. Her pain in her left hip is more into the lateral aspect and superior over the pelvis region. Results/DataXRays were ordered, obtained and interpreted today in the office. Indication: pain/dysfunction. Side: Right Site: Knee Views: 3 Views, Standing AP, Lateral and Merchant's Findings: Satisfactory post-operative findings. hardware is in good position. no evidence of implant loosening. XRays were ordered, obtained and interpreted today in the office. Indication: pain/dysfunction. Side: Left Site: Hip Views: 2 Views, AP/Lateral Findings: No fractures, dislocations, or other significant abnormalities. AssessmentRight total knee replacement doing wellLeft hip gluteal strain improvedPlanAt this time she is doing quite well we discussed rest ice anti- inflammatories as needed for the left hip. We would see her back in the future if her pain increases for the left hip. Her right total knee is doing well we discussed dental prophylaxis we will see her back in 2 years or sooner if needed. Plan X-Ray I Hip-Uni Pelvis - 2 or 3 views (XRays were ordered, obtained and interpretedtoday in the office. Indication: pain/dysfunction.); Status:Complete; Done: [id number] Perform:SOS28; Due:19Tcc3824; Last Updated By:Gaurav Gallego; 02/05/2020 2:06:42 PM;Ordered; For:Right knee pain; Ordered By:Riya Lopez;Weight Bearing Status : Weight bearing X-Ray I Knee - 3 views (XRays were ordered, obtained and interpreted today in theoffice. Indication: pain/dysfunction.); Status:Complete; Done: [id number] Perform:SOS28; Due:56Tqc6566; Last Updated By:Gaurav Gallego; 02/05/2020 2:06:42 PM;Ordered; For:Right knee pain; Ordered By:Riya Lopez;jkWeight Bearing Status : Weight bearingLaterality: : Right Signatures Electronically signed by : Riya Lopez NP; Feb 06 2020 9:22AM EST (Author) Electronically signed by : Misael Cardona M.D.; Feb 12 2020 3:41PM EST Name Value Range Interpretation Code Description Data Vivien rce(s) Supporting Document(s) ID Date Data Source [id number] 01/27/2020 12:22:02 PM EDT [facility] $$ADDENDUM$$Further pathology is availab le from the stereotactic biopsy right breast with DCIS and small fociof invasive cancer. Estrogen receptor strongly positive. Progesterone receptor strongly positive.No over expression of HER2. 30% k167 ORIGINALEXAMINATION:VACUUM ASSITED STEREOTACTIC INNER RIGHT BREAST BIOPSYRight breast Vacuum assisted Stereotactic Guided breast Core Biopsy with diagnostic mammogram, clipplacement. Specimen radiograph for calcifications.CLINICAL HISTORY:Prior breast cancer on the right. Posterior therapeutic right breast with new indeterminatecalcifications inner right breast CONSENT:The procedure is described in detail. The possibility of bleeding, infection or allergy arediscussed. Alternatives such as surgical referral or mammographic surveillance are discussed. Shesigns a consent form and wants to proceed.TECHNIQUE:Utilizing stereotactic guidance a 9 gauge vacuum assisted biopsy probe is inserted through anincision and fired. Multiple tissue samples are obtained and sent for pathology.FINDINGS:Stereotactic procedure: From a medial approach the calcifications are visualized on stereotacticimages. After the appropriate preparation of the skin and application of anesthesia 5 samples wereobtained without complication pathology is pending.Clip placement: Under sterile technique a stainless steel clip is placed at the biopsy siteDiagnostic mammogram: Mammogram confirms absence of calcifications with a biopsy clipSpecimen radiograph demonstrates calcificationsIMPRESSION:Successful stereotactic core biopsy of indeterminate new calcifications right breast. Pathologydemonstrates ductal carcinoma in situ with 2 small foci of invasive ductal cancer. Focalmicrocalcifications also seen and a blood vessel. Results were called to the clinician's office.BI-RADS: 6 - Pathologically proven breast malignancy.----- Page Break ----- Name Value Range Interpretation Code Description Data Vivien rce(s) Supporting Document(s) ID Date Data Source [id number] 12/18/2019 03:01:03 PM EDT [facility] BILATERAL DIGITAL SCREENING BREAST TOMOS YNTHESIS MAMMOGRAMBilateral Digital Screening breast tomosynthesis/mammogram with R2 computer aided detection.CLINICAL HISTORYLast clinical breast exam: April [id number] through 2018BREAST CANCER RISK ASSESSMENT5 Year Risk (at current age): %Lifetime Risk (to age 90): Not calculated due to personal history of breast cancer %TECHNIQUETECHNIQUE: Bilateral craniocaudal and mediolateral oblique 3D mammograms were obtained usingtomosynthesis technique. Synthesized 2D projections are generated and reviewed. Interpretation isaided by R2 CAD. Comparison is made to prior studies, most recently 12/19/2018. Interpretation isaided by R2 CAD.In addition a right lateral tomographic set of images were performedFINDINGS:The breasts are composed of scattered fibroglandular elements. Left breast unchanged. Milddeformity right breast from lumpectomy. There is a new tiny cluster of indeterminate slightly Pmore for calcifications inner upper right breast approximately 2-3 o'clock location. This could befollowed in 6 months but given the patient's elevated risk factors consideration for eithersurgical consultation or stereotactic biopsy.IMPRESSIONUnchanged negative left breast.The right breast has new pleomorphic calcifications inner aspect. Although low suspicion there areindeterminate in a patient at high risk. Surgical consultation or stereotactic biopsy. At thistime the patient is favoring stereotactic biopsy and prefers to [facility]. I discussed the findings with and gave a result letter to the patient at----- Page Break ----- the time of imaging. She has been added to our reminder notification system.Thank you for the opportunity to participate in the care of this patient.BI-RADS: 4 Suspicious Abnormality.ACR Density B(2) Name Value Range Interpretation Code Description Data Vivien rce(s) Supporting Document(s) ID Date Data Source [id number] 08/21/2019 10:05:00 AM EDT [facility] [address] [place] [address] PHONE: [phone] FAX: [phone] Name .................. : INOCENCIO Sharma Acct Number.................. : [id number] ROOM. ................. : MR Number ................... : [id number] Stay type ............. : O/P Discharge Date......... ... : 08/19/19 Admit Date ......... : 08/19/19 Admit Phys .................... : SHIRA DESHAUN Date of ....... : 1945 Family Phys ................... : SHIRA DESHAUN Phone .................. : [phone] Age ................................ : 74 Film# .................. .:[id number] Sex ................................. : F Unsigned transcriptions are preliminary reports and do not represent a medical or legal document FEMUR MIN 2 VIEWS LT [id number] COMPLETE:08/19/19 12:21 NOHEMI [id number] (REASON FOR PROCESS: HX OF CANCER; PAIN; [place] [id number] COMPLETE:08/19/19 12:20 NOHEMI 09528 (REASON FOR HIP: HX OF CANCER; PAIN; ARTHRITIS LEFT FEMUR AND LEFT HIP: COMPARISON: None available. FINDINGS: There is no acute fracture or dislocation at the femoroacetabular joint. There is no acute fracture of the shaft of the femur. If there is concern for trauma to the knee, dedicated radiographs are suggested. The bones are demineralized, but no discrete destructive lytic or blastic lesion is appreciated. Consider bone scanning for further evaluation if clinically warranted. IMPRESSION: No acute fracture or dislocation of the femoroacetabular joint or fracture of the shaft of the femur. Electronically Reviewed and Signed By Petar Birmingham MD , 08/21/19 10:05, [facility] Transcribe Initials: BONILLA , Transcribe Date: 08/19/19 12:59, Dictation Date: Copy for: SHIRASAMARA OROZCO via modePrimedic Copy for: [address] [place] [address] REC Page 1 of 1 Name Value Range Interpretation Code Description Data Vivien rce(s) Supporting Document(s) ID Date Data Source [id number] 08/21/2019 10:05:00 [place] [address] PHONE: [phone] FAX: [phone] Name .................. : INOCENCIO Sharma Acct Number.................. : [id number] ROOM. ................. : MR Number ................... : [id number] Stay type ............. : O/P Discharge Date......... ... : 08/19/19 Admit Date ......... : 08/19/19 Admit Phys .................... : SHIRA MEADE Date of ....... : 1945 Family Phys ................... : SHIRA MEADE Phone .................. : [phone] Age ................................ : 74 Film# .................. .:[id number] Sex ................................. : F Unsigned transcriptions are preliminary reports and do not represent a medical or legal document FEMUR MIN [address] [place] [id number] COMPLETE:08/19/19 12:21 NOHEMI [id number] (REASON FOR PROCESS: HX OF CANCER; PAIN; ARTHRITIS HIP COMPLETE LT [id number] COMPLETE:08/19/19 12:20 NOHEMI 72850 (REASON FOR HIP: HX OF CANCER; PAIN; ARTHRITIS LEFT FEMUR AND LEFT HIP: COMPARISON: None available. FINDINGS: There is no acute fracture or dislocation at the femoroacetabular joint. There is no acute fracture of the shaft of the femur. If there is concern for trauma to the knee, dedicated radiographs are suggested. The bones are demineralized, but no discrete destructive lytic or blastic lesion is appreciated. Consider bone scanning for further evaluation if clinically warranted. IMPRESSION: No acute fracture or dislocation of the femoroacetabular joint or fracture of the shaft of the femur. Electronically Reviewed and Signed By Petar Birmingham MD , 08/21/19 10:05, [facility] Transcribe Initials: BONILLA , Transcribe Date: 08/19/19 12:59, Dictation Date: Copy for: SHIRA OROZCO via modePrimedic Copy for: 710 MED REC Page 1 of 1 Name Value Range Interpretation Code Description Data Vivien rce(s) Supporting Document(s) Procedure Social History Code Duration Value Status Description Data Source(s ) Smoking 06/15/2020 12:00:00 AM EST Former Smoker completed Former Sm[facility] Smoking 05/29/2020 03:33:22 PM EST Never smoked tobacco (findi ng) completed Never smoked tobacco (finding) ANJEL (Jaron Joiner MD [facility]) Vital Signs ID Date Data Source UNK Name Value Range Interpretation Code Description Data Source(s) Diastolic blood pressure 74 mm[Hg] 74 mm[Hg] [facility] Systolic blood pressure 126 mm[Hg] 126 mm[Hg] e CW1 ([facility]) Body mass index (BMI) [Ratio] 33.12 kg/m2 33.12 kg/m2 eCW1 [facility]) Body height 63 [in_i] 63 [in_i] eCW1 ([facility]) Body weight 187 [lb_av] 187 [lb_av] eCW1 ([facility]) Body surface area Derived from formula 1.91 m2 1.91 [facility] Body weight 86.184 kg 86.184 kg [facility] ([facility]) [place] body weight 120 [lb_av] 120 [lb_av] MEDEN T ([facility]) Body mass index (BMI) [Ratio] 32.6 kg/m2 32.6 k g/m2 [facility] ([facility]) Body weight 190.00 [lb_av] 190.00 [lb_av] MEDEN T ([facility]) Body height 64 [in_i] 64 [facility]i] [facility] 5'4" Respiratory rate 16 /min 16 /min [facility] ( [facility]) Heart rate 74 /min 74 /[facility] Diastolic blood pressure 82 mm[Hg] 82 mm[Hg] MEDENT ([facility]) Systolic blood pressure 128 mm[Hg] 128 mm[Hg] M EDENT ([facility]) Diastolic blood pressure 78 mm[Hg] 78 mm[Hg] eCW[facility] Systolic blood pressure 118 mm[Hg] 118 mm[Hg] e CW1 ([facility]) Body mass index (BMI) [Ratio] 33.48 kg/m2 33.48 kg/m2 eCW1 ([facility]) Body height 63 [in_us] 63 [in_us] eCW1 ([facility]) Body weight Measured 189 [lb_av] 189 [lb_av] eC W1 ([facility]) Body mass index (BMI) [Ratio] 33.7 kg/m2 33.7 k g/m2 MEDENT ([facility], [facility]) Body height 63 [in_i] 63 [in_i] MEDENT ([facility], [facility]) 5'3" Body weight 190.00 [lb_av] 190.00 [lb_av] MEDEN T ([facility], [facility]) Body temperature 98.4 [degF] 98.4 [degF] MEDENT ([facility], [facility]) Oxygen saturation in Arterial blood by Pulse oximetry 98 % 98 % MEDENT ([facility], [facility]) Respiratory rate 16 /min 16 /min MEDENT ( [facility], [facility]) Heart rate 69 /min 69 /min MEDENT ([facility], [facility]) Diastolic blood pressure 83 mm[Hg] 83 mm[Hg] MEDENT ([facility], [facility]) Systolic blood pressure 136 mm[Hg] 136 mm[Hg] M EDENT ([facility], [facility]) Diastolic blood pressure 76 mm[Hg] 76 mm[Hg] eCW1 ([facility]) Systolic blood pressure 122 mm[Hg] 122 mm[Hg] e CW1 ([facility]) Body temperature 97.7 [degF] 97.7 [degF] eCW1 ( [facility]) Respiratory rate 18 /min 18 /min eCW1 ([facility]) Heart rate 64 /min 64 /min eCW1 (On license of [facility]) Body mass index (BMI) [Ratio] 33.83 kg/m2 33.83 kg/m2 eCW1 ([facility]) Body height 63 [in_us] 63 [in_us] eCW1 ([facility]) Body weight Measured 191 [lb_av] 191 [lb_av] eC W1 ([facility])
--- OUTSIDE RECORDS SUMMARY | 2020-07-23 10:41 | CCD ---
Author Author Jaron Ravi MD [facility] Organization Jaron Ravi MD [facility] Address [address] [place] [address] Phone Care Team Providers Care Treatment Plant Operator Name Role Phone Armando Knox MD PP [phone] Lala SAINZ, Michael Unavailable [phone] Reason for Referral No Reason for Referral Recorded Problems Includes: Active, inactive, and resolved Problems All Visits Onset Date - Time Resolved Date - Time Provider Co ndition Status Cataract Senile Nuclear 05/29/2020 - 12:00AM Michael Begum [facility] Active Dry Eye Syndrome 05/29/2020 - 12:00AM Michael gross DO Active Vitreous Disorders Degeneration 05/29/2020 - 12:00AM Jennifer Reeves DO Active Plan of Treatment Pending Tests Order Diagnosis Results Due Ordering Provi keon Testing Ordered - AScan A-Scan IOL Master Age-related nucl ear cataract, bilateral 07/27/20 Michael Reeves DO Future Appointments Date Time Location Provider 1 WK PREOP FOR SURGERY 07/07/2020 1:00PM Jaron Quintero [facility] Michael Reeves DO Extracapsular cataract removal w/IOL implant 07/23/2020 9:0 0AM [facility] Michael Reeves DO SAME DAY POST OP 07/23/2020 2:30PM [facility] Michael Reeves DO POST OP VISIT WITH PRE-OP 07/24/2020 1:00PM Jaron begum MD [facility] Michael Reeves DO Extracapsular cataract removal w/IOL implant 07/30/2020 7:3 0AM [facility] Michael Reeves DO SAME DAY POST OP 07/30/2020 12:40PM [facility] Michael Reeves DO 1 Week Post OP 08/07/2020 1:00PM Jaron Ravi MD [facility] Jennifer Reeves DO Assessments Includes: Assessments for all patient encounters Findings Encounter Date Dry eye syndrome NEW PATIENT WITH REFERRAL with Michael portillo DO 05/28/2020 Nuclear senile cataract NEW PATIENT WITH REFERRAL with Jania aguiar Lala DO 05/28/2020 Vitreous degeneration NEW PATIENT WITH REFERRAL with Michael Lala DO 05/28/2020 Instructions Instructions not supported for this document typeNo Instructions Recorded Medical Equipment - Implanted Devices Includes: Current and historical DevicesNo Medical Equipment Recorded Medications Includes: Current and historical Medications Current Medications (continue as prescribed) VESIcare 5 MG Oral Tablet 05/28/2020 Provider: Diagnosis: Losartan Potassium 100 MG Oral Tablet 05/28/2020 Pr ovider: Diagnosis: hydroCHLOROthiazide 25 MG Oral Tablet 05/28/2020 Pr ovider: Diagnosis: Metoprolol 100 MG Oral Tablet 05/28/2020 Provider: Diagnosis: Vytorin 10-20 MG Oral Tablet 05/28/2020 Provider: Diagnosis: Calcium 600 MG Oral Tablet 05/28/2020 Provider: Diagnosis: Multivitamin Oral Tablet 05/28/2020 Provider: Diagnosis: Letrozole 2.5 MG Oral Tablet 05/28/2020 Provider: Diagnosis: Medications Administered Includes: Administered Medications in patient's chartNo Administered Medications Recorded Vital Signs Includes: Vital Signs from 05/29/2019 through 05/29/2020No Vital Signs Recorded For Specified Dates Results Includes: Results from 05/29/2019 through 05/29/2020No Results Recorded For Specified Dates History of Present Illness History of Present Illness not supported for this document typeNo History of Present Illness Recorded Social History Description Last Updated Alcohol use wine 05/28/2020 No tobacco use 05/28/2020 Not using drugs 05/28/2020 Smoking status : Never smoker 05/28/2020 Procedures and Surgical History Includes: Procedures from 05/29/2019 through 05/29/2020 Procedures Code Diagnosis Performing Provider Service Location Service Date Medical Eye Exam 01890 CATARACT SENILE NUCLEAR Michael Lala DO 05/28/2020 Surgical History Last Updated Surgical / procedural history Knee Repl acement October 2018, Breast Cancer Surgery 201905/28/2020 Medical History Includes: Medical History in patient's chart Description Last Updated History of arthritis 05/29/2020 History of hypertension 05/28/2020 Reported medical history Breast Cancer November 2008, Ove ractive bladder 05/28/2020 Family History Includes: Family History in patient's chart Description Last Updated Maternal history of cataract 05/28/2020 Maternal history of heart disease 05/28/2020 Paternal history of cataract 05/28/2020 Paternal history of heart disease 05/28/2020 Sororal history of arthritis 05/28/2020 Sororal history of cataract 05/28/2020 Sororal history of family history of cancer 05/28/2020 Sororal history of heart disease 05/28/2020 Review of Systems Review of Systems not supported for this document typeNo Review of Systems Recorded Mental Status Mental Status not supported for this document type Description Oriented to time, place, and person Difficulty reading Functional Status Functional Status not supported for this document typeNo Functional Status Recorded Physical Exam Physical Exam not supported for this document typeNo Physical Exam Recorded Immunizations Includes: Immunizations in patient's chartNo Immunizations Recorded Allergies Includes: Active, inactive, and resolved AllergiesNo Known Allergies Encounters Includes: Encounters from 05/29/2019 through 05/29/2020 Encounter Provider Location Date Check-In Time Check-Out Time D iagnosis NEW PATIENT WITH REFERRAL Michael Quiñonez MD [facility] 05/28/2020 8:37AM 10:08AM Dry Eye Syndrome, Ca taract Senile Nuclear, Vitreous Disorders Degeneration Insurance Includes: Active Insurance Policies Plan Name Member ID Group # Subscriber Relationship Effective Da sally 1 - Medicare Part B [facility] ([facility]) [id number] Cindy Stone of Self 2 - [facility] [id number] Jaron Cardozo Advance Directives Includes: Current Advance DirectivesNo Advance Directives Recorded Health Concerns Includes: Active Health ConcernsNo Active Health Concerns Recorded Goals Includes: Active GoalsNo Active Goals Recorded Interventions Includes: Interventions for active GoalsNo Interventions Recorded Evaluations & Outcomes Includes: Evaluations & Outcomes for active GoalsNo Outcomes Recorded
--- OUTSIDE RECORDS SUMMARY | 2020-07-23 10:41 | CCD ---
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 16892 01 Problem Dermatofibroma D23.9 Active confirmed 27785 6000 Problem Actinic keratoses L57.0 Active confirmed 40 4397042 Problem Melanocytic nevi of left upper limb, including shoulder D22.62 Active confirmed [id number] Problem Lentigines L81.4 Active confirmed 556990975 Problem Melanocytic nevi of right upper limb, including shoulder D22.61 Active confirmed 486306437 Problem Seborrheic keratoses L82.1 Active confirmed 699164692 Problem 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 confirmed 265391068 Problem Melanocytic nevi of scalp and neck D22.4 Activ e confirmed 487643510 Problem Melanocytic nevi of left lower limb, including hip D22.72 Active confirmed 021140594951245 Problem Melanocytic nevi of right lower limb, including hip D22.71 Active confirmed 043284275 ALLERGIES No Known Allergies ENCOUNTERS from 1945 to 2020-07-13 Encounter Location Date Provider Diagnosis [facility] [address] [place] [address] 04 Jun, 2020 George Carreno Actinic keratoses L57.0 ; Sc reening, malignant neoplasm, skin Z12.83 ; Dermatofibroma D23.9 ; 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 ; Seborrheic keratoses L82.1 ; Lentigines L81.4 ; Melanocytic nevi of trunk D22.5 ; Me lanocytic nevi of left lower limb, including hip D22.72 ; Melanocytic nevi of left upper limb, including shoulder D22.62 ; Melanocytic nevi of right lower limb, including hip D22.71 ; Melanocytic nevi of right upper limb, including shoulder D22.61 ; Melanocytic nevi of scalp and neck D22.4 and 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 Ye s Points 2 Interpretation Negative How often did you have a drink containing alcohol in t he past year? Two to four times a month (2 points) BMI Care Goal Follow-Up Question Answer Notes Above Normal BMI Follow-Up Lifestyle education regarding t Tobacco Use: Question Answer Notes Are you a: former smoker How long has it been since you last smoked? > 10 years REASON FOR REFERRAL No Information VITAL SIGNS Weight 187 lbs Jun, Height 63 in Jun, BMI 33.12 kg/m2 Jun, Blood pressure systolic 126 mm Hg Jun, Blood pressure diastolic 74 mm Hg Jun, MEDICATIONS Medication SIG (Take, Route, Frequency, Duration) Notes Start Da te End Date Status VESIcare 5 MG 1 tablet Orally Once a day for 30 day(s) Active Vytorin 10-20 MG 1 tablet Orally Once a day Active Hydrochlorothiazide 25 MG 1 tablet in the morning Orally Once a day Active Femara 2.5 MG 1 tablet Orally Once a day for 30 day(s) Jun, Active Calcium 600 + D 600-200 MG-UNIT 1 tablet with a meal Orally Once a da y Active Metoprolol Succinate 100 MG 1 capsule Orally Once a day for 30 day(s) Active Multi For Her - Orally Active Losartan Potassium 100 MG 1 tablet Orally Once a day Active PROCEDURES No Information RESULTS No Results REASON FOR VISIT 1 year MEDICAL (GENERAL) HISTORY Type Description Date Medical History Breast CA Surgical History Right breast lumpectomy, chemo and radia tion 11/2008 Surgical History tubal ligation Surgical History total right knee replacement 10/2018 Surgical History right breat cancer, lumpectomey, chemo a nd radiation. 02/2020 Goals Section No Information Health Concerns No Information MEDICAL EQUIPMENT No Information MENTAL STATUS No Information FUNCTIONAL STATUS No Information ASSESSMENTS Encounter Date Diagnosis Assessment Notes Treatment Notes Treatm ent Clinical Notes Jun, Actinic keratoses (ICD-10 - L57.0) Cryotherapy x [ 1] number of sites. [place] protocol was followed in compliance with [facility] standards. Patient was counseled regarding the indication for treatment (precancerous state for actinic keratosis or cosmetic reasons if done for seborrheic keratoses, acrochordons or warts) as well as, the method and expected results to include compromise of the skin barrier, bleeding, scarring/white area, redness at site, lesion recurrence, and pain. Patient was consented to the risks and benefits of the procedure and gave informed consent. Lesion(s) with locations as indicated in the physical examination were treated. Lesion(s) were treated with 2 cycles of liquid nitrogen with a thaw time of at least ten seconds. Therapy was applied in a pulsed fashion to minimize collateral tissue injury. Patient was instructed to use Vaseline ointment to the area(s) until healed. Patient tolerated the procedure well and left in stable condition. Pain before and after the procedure were assessed to not be significantly different than baseline. Jun, Screening, malignant neoplasm, skin (ICD-10 - Z1 2.83) Patient counseled on signs and symptoms of skin cancer including ABCDE's of Melanoma. Patient counseled to wear sunscreen or use sun protective clothing when outdoors. Avoid peak hours of sun between 10-2. Patient instructed to call with any new or changing lesions. Jun, Dermatofibroma (ICD-10 - D23.9) Leg, benign, reassurance Jun, Lundy angioma (ICD-10 - D18.01) Benign, reassurance Jun, Seborrheic keratoses (ICD-10 - L82.1) Benign, reassurance Jun, Lentigines (ICD-10 - L81.4) Benign, reassurance, ABCDE, photoprotection, Q 1 Y MD derm skin check, Q 1 M self skin check Jun, Melanocytic nevi of trunk (ICD-10 - D22.5) Benign, reassurance, ABCDE, photoprotection, Q 1 Y MD derm skin check, Q 1 M self skin check Jun, Melanocytic nevi of left low er limb, including hip (ICD-10 - D22.72) Benign, reassurance, ABCDE, photoprotection, Q 1 Y MD derm skin check, Q 1 M self skin check Jun, Melanocytic nevi of left upp er limb, including shoulder (ICD-10 - D22.62) Benign, reassurance, ABCDE, photoprotection, Q 1 Y MD derm skin check, Q 1 M self skin check Jun, Melanocytic nevi of right lo wer limb, including hip (ICD-10 - D22.71) Benign, reassurance, ABCDE, photoprotection, Q 1 Y MD derm skin check, Q 1 M self skin check Jun, Melanocytic nevi of right up per limb, including shoulder (ICD-10 - D22.61) Benign, reassurance, ABCDE, photoprotection, Q 1 Y MD derm skin check, Q 1 M self skin check Jun, Melanocytic nevi of scalp and neck (ICD-10 - D22 .4) Benign, reassurance, ABCDE, photoprotection, Q 1 Y MD derm skin check, Q 1 M self skin check Jun, Frontal fibrosing alopecia (ICD-10 - L66.1) Patient not bothered by mild level of disease, would start with topical steroids if flaring but right now appears burned out, patient aware, call if progressing or itchy/symptomatic PLAN OF TREATMENT Treatment Notes Assessment Notes Clinical Notes Actinic keratoses Cryotherapy x [ 1] n umber of sites. [place] protocol was followed in compliance with [facility] standards. Patient was counseled regarding the indication for treatment (precancerous state for actinic keratosis or cosmetic reasons if done for seborrheic keratoses, acrochordons or warts) as well as, the method and expected results to include compromise of the skin barrier, bleeding, scarring/white area, redness at site, lesion recurrence, and pain. Patient was consented to the risks and benefits of the procedure and gave informed consent. Lesion(s) with locations as indicated in the physical examination were treated. Lesion(s) were treated with 2 cycles of liquid nitrogen with a thaw time of at least ten seconds. Therapy was applied in a pulsed fashion to minimize collateral tissue injury. Patient was instructed to use Vaseline ointment to the area(s) until healed. Patient tolerated the procedure well and left in stable condition. Pain before and after the procedure were assessed to not be significantly different than baseline. Frontal fibrosing alopecia Patient not b othered by mild level of disease, would start with topical steroids if flaring but right now appears burned out, patient aware, call if progressing or itchy/symptomatic Screening, malignant neoplasm, skin Patient counseled on signs and symptoms of skin cancer including ABCDE's of Melanoma. Patient counseled to wear sunscreen or use sun protective clothing when outdoors. Avoid peak hours of sun between 10 -2. Patient instructed to call with any new or changing lesions. Dermatofibroma Leg, benign, reassur ance Lundy angioma Benign, reassurance Seborrheic keratoses Benign, reassurance Lentigines Benign, reassurance, ABCDE, photoprotection, Q 1 Y MD derm skin check, Q 1 M self skin check Melanocytic nevi of trunk Benign, reassu allyn, ABCDE, photoprotection, Q 1 Y MD derm skin check, Q 1 M self skin check Melanocytic nevi of scalp and neck Benig n, reassurance, ABCDE, photoprotection, Q 1 Y MD derm skin check, Q 1 M self skin check Melanocytic nevi of right upper limb, including shoulder Benign, reassurance, ABCDE, photoprotection, Q 1 Y MD derm skin check, Q 1 M self skin check Melanocytic nevi of left lower limb, including hip Benign, reassurance, ABCDE, photoprotection, Q 1 Y MD derm skin check, Q 1 M self skin check Melanocytic nevi of left upper limb, including shoulder Benign, reassurance, ABCDE, photoprotection, Q 1 Y MD derm skin check, Q 1 M self skin check Melanocytic nevi of right lower limb, including hip Benign, reassurance, ABCDE, photoprotection, Q 1 Y MD derm skin check, Q 1 M self skin check Next Appt Details 1 Year Reason:FBSE Provider Name:George Carreno, 2021-06 09:15:00 AM, [address], [place], [address], Follow Up:1 YearFBSE Insurance Providers Payer Name Payer Address Payer Phone Insured Name Patient Relati onship to Insured Coverage Start Date Coverage End Date [facility] [address] [facility] [phone] KEIRA PAINTER MEDICARE Part A and B [address] [facility] [phone] AISHA PAINTER
[2020-07-23] MEDS ORDERED: BSS IRR 500ML/OMIDRIA 4ML IRR BAG (OR ONLY) As Ordered ONE (10:44)
[2020-07-23 12:10] VITALS: BP 134/62
--- NOTE | 2020-07-24 09:39 | RO ---
OPERATIVE NOTE DATE OF OPERATION: 07/23/2020 PREOPERATIVE DIAGNOSIS: 1. Visually significant nuclear sclerotic cataract, left eye. POSTOPERATIVE DIAGNOSIS: 1. Visually significant nuclear sclerotic cataract, left eye. PROCEDURE: 1. Cataract extraction with use of phacoemulsification, and placement of intraocular lens, AU00T0, 25.5 D, left eye. SURGEON: Michael Reeves DO ANESTHESIA: Local (Omidria with MAC) COMPLICATIONS: None POSTOPERATIVE CONDITION: Stable INDICATIONS FOR SURGERY: 1. Blurred vision affecting patient's activities of daily living. DESCRIPTION OF PROCEDURE: The patient was seen in the preoperative area and properly identified. The correct operative eye was identified and marked. The patient received topical anesthetic, antibiotics, and topical dilating drops. The patient was then transferred to the operating room. The correct side was re-identified and a time-out was performed. The eye was prepped and draped in a sterile fashion. The eyelids were isolated with Tegaderm tape and the lids were held open with an adjustable speculum. A 1.0mm paracentesis incision was made. Omidria was then injected into the anterior chamber. Viscoelastic was then injected into the anterior chamber through the paracentesis. Using a 2.4mm sharp-tipped keratome, the anterior chamber was entered via a temporal clear cornea incision. A continuous curvilinear capsulorrhexis was created with Utrata forceps. Hydrodissection was performed with BSS on a blunt cannula until the nucleus was able to rotate freely. The crystalline lens was phacoemulsified and aspirated. Irrigation/aspiration was used to remove the cortical material Cohesive viscoelastic was placed into the capsular bag to deepen it. The implant was placed into the capsular bag and allowed to unfold. Placement was confirmed by visualizing the anterior capsulorrhexis. Irrigation/aspiration was used to remove the viscoelastic. The clear corneal incision was hydrated with BSS on a blunt cannula. The lens was well positioned. Intracameral antibiotic was injected into the anterior chamber. The incisions were then tested for leaks and found to be negative. The eye was then palpated for appropriate pressure and adjusted accordingly with BSS. The eyelid speculum was then carefully removed. A shield was placed over the eye. The patient tolerated the procedure well and was discharge to the recovery unit in a stable condition.
== END 2020-07-23 12:45 | disposition home or self-care (01) ==
LOC: M SDC 10:35
PROVIDERS: ATTEND Ophthalmology
DX: H25.12 Age-related nuclear cataract, left eye (principal); I10 Essential (primary) hypertension; E78.5 Hyperlipidemia, unspecified; Z85.3 Personal history of malignant neoplasm of breast; Z92.3 Personal history of irradiation; Z92.21 Personal history of antineoplastic chemotherapy; Z79.811 Long term (current) use of aromatase inhibitors; Z79.899 Other long term (current) drug therapy
CPT/HCPCS: 66984; J1097; J2250; J3010; V2632

== ENCOUNTER → 2020-07-25 | Outpatient (CLI) | payer MEDICARE, OTHER ==
[~2020-07-25] MED LIST changes: -CEFUROXIME 1MG/0.1ML INTRACAMERAL INJ As Ordered ONE; -DUOVISC (0.50ML VISCOAT/0.55ML PROVISC) OPHTH KIT As Ordered ONE; -MIDAZOLAM INJ 2MG/2ML VIAL (J2250 PER 1MG) As Ordered ONE; -OFLOXACIN 0.3 % (OCUFLOX) OPTH SOL 5ML OS ONE; -PHENYLEPHRINE 2.5% OPHTH SOL 2ML OS ONE; -POVIDONE-IODINE 5% OPHTH PREP SOL 30ML As Ordered ONE; -PROPARACAINE 0.5% OPHTH SOL 15ML OS ONE; -TROPICAMIDE 1% OPHTH SOLN 2ML OS ONE; -fentaNYL 100 MCG/2 ML INJECTION (J3010) As Ordered ONE
== END ==
LOC: M LABSMTC 08:03
PROVIDERS: ATTEND Anesthesiology
DX: Z01.812 Encounter for preprocedural laboratory examination (principal); Z20.822 Contact with and (suspected) exposure to COVID-19

== ENCOUNTER 2020-07-30 09:27 | Day surgery (SDC) | payer MEDICARE, OTHER ==
[~2020-07-30] VITALS: Ht 157.5 cm; Wt 85.3 kg
[~2020-07-30 09:27] MED LIST changes: +CEFUROXIME 1MG/0.1ML INTRACAMERAL INJ As Ordered ONE; +DUOVISC (0.50ML VISCOAT/0.55ML PROVISC) OPHTH KIT As Ordered ONE; +MIDAZOLAM INJ 2MG/2ML VIAL (J2250 PER 1MG) As Ordered ONE; +OFLOXACIN 0.3 % (OCUFLOX) OPTH SOL 5ML OD ONE; +PHENYLEPHRINE 2.5% OPHTH SOL 2ML OD ONE; +POVIDONE-IODINE 5% OPHTH PREP SOL 30ML As Ordered ONE; +PROPARACAINE 0.5% OPHTH SOL 15ML OD ONE; +TROPICAMIDE 1% OPHTH SOLN 2ML OD ONE; +fentaNYL 100 MCG/2 ML INJECTION (J3010) As Ordered ONE
--- OUTSIDE RECORDS SUMMARY | 2020-07-30 09:32 | CCD ---
Author Author Jaron Ravi MD [facility] Organization Jaron Ravi MD [facility] Address [address] [facility] [address] [place] [address] Phone Care Team Providers Care Web Applications Programmer Name Role Phone Abilio BINGHAM, Armando Rodriguez PP [phone] Lala SAINZ, Michael Unavailable [phone] Reason for Referral No Reason for Referral Recorded Problems Includes: Active, inactive, and resolved Problems All Visits Onset Date - Time Resolved Date - Time Provider Co ndition Status Pseudophakia 07/24/2020 - 12:00AM Michael Reeves DO Active Cataract Senile Nuclear 05/29/2020 - 12:00AM Michael portillo DO Active Dry Eye Syndrome 05/29/2020 - 12:00AM Michael gross DO Active Vitreous Disorders Degeneration 05/29/2020 - 12:00AM Jennifer Reeves DO Active Plan of Treatment Future Appointments Date Time Location Provider Extracapsular cataract removal w/IOL implant 07/30/2020 7:3 0AM [facility] Michael Reeves DO 1 Week Post OP 08/07/2020 1:00PM Jaron Ravi MD [facility] Jennifer Reeves DO Assessments Includes: Assessments for all patient encounters Findings Encounter Date Nuclear senile cataract POST OP VISIT WITH PRE-OP with Jania Reeves DO 07/24/2020 Pseudophakia POST OP VISIT WITH PRE-OP with Michael portillo DO 07/24/2020 Nuclear senile cataract 1 WK PREOP FOR SURGERY with Michael Reeves DO 07/08/2020 Dry eye syndrome NEW PATIENT WITH REFERRAL with Michael portillo DO 05/28/2020 Nuclear senile cataract NEW PATIENT WITH REFERRAL with Jania stefania Lala DO 05/28/2020 Vitreous degeneration NEW PATIENT WITH REFERRAL with Michael Reeves DO 05/28/2020 Instructions Instructions not supported for this document typeNo Instructions Recorded Medical Equipment - Implanted Devices Includes: Current and historical DevicesNo Medical Equipment Recorded Medications Includes: Current and historical Medications Current Medications (continue as prescribed) Moxifloxacin HCl 0.5% Ophthalmic Solution 07/08/2020 Provider: Michael Reeves DO Diagnosis: Age-related nuclear cataract, left eye Three days prior to surgery start one drop four times a day in the left eye BromSite 0.075% Ophthalmic Solution 07/08/2020 Prov ider: Michael Reeves DO Diagnosis: Age-related nuclear cataract, left eye Three days prior to surgery start one drop two times a day i n the left eye Inveltys 1% Ophthalmic Suspension 07/08/2020 Provid er: Michael Reeves DO Diagnosis: Age-related nuclear cataract, left eye Day of surgery remove patch start one drop two times a day i n the left eye VESIcare 5 MG Oral Tablet 05/28/2020 Provider: [...] Recorded Vital Signs Includes: Vital Signs from 07/24/2019 through 07/24/2020No Vital Signs Recorded For Specified Dates Results Includes: Results from 07/24/2019 through 07/24/2020No Results Recorded For Specified Dates History of Present Illness History of Present Illness not supported for this document typeNo History of Present Illness Recorded Social History Description Last Updated No tobacco use 07/24/2020 Not using drugs 07/24/2020 Smoking status : Never smoker 07/24/2020 Tobacco non-user 07/08/2020 Alcohol use wine 05/28/2020 Procedures and Surgical History Includes: Procedures from 07/24/2019 through 07/24/2020 Procedures Code Diagnosis Performing Provider Service Location Service Date Intermediate Eye Exam Established Patient (Signi/Sep Eval. & Man.) 62234 Age- related nuclear cataract, left eye Michael Quiñonez MD [facility] 07/08/2020 Ophthalmic biometry - IOL Master with IO L calculation (Left side, WAIVER OF LIABILITY ON FILE (ABN)) 99456 Age-related nuclear cataract, left eye Michael Quiñonez MD [facility] 07/08/2020 Medical Eye Exam [id number] Age-related nuclear cataract, b ilateral Michael Quiñonez MD [facility] 05/28/2020 Surgical History Last Updated History of cataract extraction PCIOL OS by Dr. Raisa escamilla 07/23/2020 07/24/2020 Surgical / procedural history Knee Repl acement October 2018, Breast Cancer Surgery 201905/28/2020 Medical History Includes: Medical History in patient's chart Description Last Updated Recent change in medical history Cataract Surgery lef t eye 07/23/2020 07/24/2020 History of arthritis 05/29/2020 History of hypertension 05/28/2020 Reported medical history Breast Cancer November 2008, Ove ractive bladder 05/28/2020 Family History Includes: Family History in patient's chart Description Last Updated Maternal history of cataract 07/24/2020 Maternal history of heart disease 07/24/2020 Paternal history of cataract 07/24/2020 Paternal history of heart disease 07/24/2020 Sororal history of arthritis 07/24/2020 Sororal history of cataract 07/24/2020 Sororal history of family history of cancer 07/24/2020 Sororal history of heart disease 07/24/2020 Review of Systems Review of Systems not supported for this document typeNo Review of Systems Recorded Mental Status Mental Status not supported for this document type Description Oriented to time, place, and person Functional Status Functional Status not supported for this document typeNo Functional Status Recorded Physical Exam Physical Exam not supported for this document typeNo Physical Exam Recorded Immunizations Includes: Immunizations in patient's chartNo Immunizations Recorded Allergies Includes: Active, inactive, and resolved AllergiesNo Known Allergies Encounters Includes: Encounters from 07/24/2019 through 07/24/2020 Encounter Provider Location Date Check-In Time Check-Out Time D iagnosis POST OP VISIT WITH PRE-OP Michael Quiñonez MD [facility] 07/24/2020 12:52PM 2:13PM Pseudophakia, Catara ct Senile Nuclear Extracapsular cataract removal w/IOL implant Michael Thorpe in [facility] 07/23/2020 07/08/2020 9:00AM 7:11AM 1 WK PREOP FOR SURGERY Michael Quiñonez MD [facility] 07/08/2020 1:45PM 2:22PM Cataract Senile Nuclear NEW PATIENT WITH REFERRAL Michael Quiñonez MD [facility] 05/28/2020 8:37AM 10:08AM Dry Eye Syndrome, Ca taract Senile Nuclear, Vitreous Disorders Degeneration Insurance Includes: Active Insurance Policies Plan Name Member ID Group # Subscriber Relationship Effective Da sally 1 - Medicare Part B [facility] ([facility]) [id number] Cindy Stone of Self 2 - [facility] Health [facility] [id number] Jaron Cardozo Advance Directives Includes: Current Advance DirectivesNo Advance Directives Recorded Health Concerns Includes: Active Health ConcernsNo Active Health Concerns Recorded Goals Includes: Active GoalsNo Active Goals Recorded Interventions Includes: Interventions for active GoalsNo Interventions Recorded Evaluations & Outcomes Includes: Evaluations & Outcomes for active GoalsNo Outcomes Recorded
--- OUTSIDE RECORDS SUMMARY | 2020-07-30 09:33 | CCD ---
Author Author Jaron Ravi MD [facility] Organization Jarno Ravi MD [facility] Address [address] [facility] [address] [place] [address] Phone Care Team Providers Care Disability Rater Name Role Phone Abilio BINGHAM, Armando Rodriguez PP [phone] Lala SAINZ, Michael Unavailable [phone] Reason for Referral No Reason for Referral [...] Treatment Future Appointments Date Time Location Provider POST OP VISIT WITH PRE-OP 07/24/2020 1:00PM Jaron begum MD [facility] Michael Reeves DO Extracapsular cataract removal w/IOL implant 07/30/2020 7:3 0AM [facility] Michael Reeves DO 1 Week Post OP 08/07/2020 1:00PM Jaron Ravi MD [facility] Jennifer Reeves DO Assessments Includes: Assessments for all patient encounters Findings Encounter Date Nuclear senile cataract 1 WK PREOP FOR SURGERY with Michael Reeevs DO 07/08/2020 Dry eye syndrome NEW PATIENT WITH REFERRAL with Michael portillo DO 05/28/2020 Nuclear senile cataract NEW PATIENT WITH REFERRAL with Jania Reeves DO 05/28/2020 Vitreous degeneration NEW PATIENT WITH [...] Recorded Vital Signs Includes: Vital Signs from 07/23/2019 through 07/23/2020No Vital Signs Recorded For Specified Dates Results Includes: Results from 07/23/2019 through 07/23/2020No Results Recorded For Specified Dates History of Present Illness History of Present Illness not supported for this document typeNo History of Present Illness Recorded Social History Description Last Updated Tobacco non-user 07/08/2020 No tobacco use 07/08/2020 Not using drugs 07/08/2020 Smoking status : Never smoker 07/08/2020 Alcohol use wine 05/28/2020 Procedures and Surgical History Includes: Procedures from 07/23/2019 through 07/23/2020 Procedures Code Diagnosis Performing Provider Service Location Service Date Intermediate Eye Exam Established Patient (Signi/Sep Eval. & Man.) 97504 Age- related nuclear cataract, left eye Michael Quiñonez MD [facility] 07/08/2020 Ophthalmic biometry - IOL Master with IO L calculation (Left side, WAIVER OF LIABILITY ON FILE (ABN)) [id number] Age-related nuclear cataract, left eye Michael Quiñonez MD [facility] 07/08/2020 Medical Eye Exam [id number] Age-related nuclear cataract, b ilateral Michael Quiñonez MD [facility] 05/28/2020 Surgical History Last Updated Surgical / procedural history Knee Repl acement October 2018, Breast Cancer Surgery 201905/28/2020 Medical History Includes: Medical History in patient's chart Description Last Updated No recent change in medical history 07/08/2020 History of arthritis 05/29/2020 History of hypertension 05/28/2020 Reported medical history Breast Cancer November 2008, Ove ractive bladder 05/28/2020 Family History Includes: Family History in patient's chart Description Last Updated Maternal history of cataract 07/08/2020 Maternal history of heart disease 07/08/2020 Paternal history of cataract 07/08/2020 Paternal history of heart disease 07/08/2020 Sororal history of arthritis 07/08/2020 Sororal history of cataract 07/08/2020 Sororal history of family history of cancer 07/08/2020 Sororal history of heart disease 07/08/2020 Review of Systems Review of Systems not supported for this document typeNo Review of Systems Recorded Mental Status Mental Status not supported for this document typeNo Mental Status Recorded Functional Status Functional Status not supported for this document typeNo Functional Status Recorded Physical Exam Physical Exam not supported for this document typeNo Physical Exam Recorded Immunizations Includes: Immunizations in patient's chartNo Immunizations Recorded Allergies Includes: Active, inactive, and resolved AllergiesNo Known Allergies Encounters Includes: Encounters from 07/23/2019 through 07/23/2020 Encounter Provider Location Date Check-In Time Check-Out Time D iagnosis Extracapsular cataract removal w/IOL implant Michael Thorpe in [facility] 07/23/2020 07/08/2020 9:00AM 7:11AM 1 WK PREOP FOR SURGERY Michael Quiñonez MD [facility] 07/08/2020 1:45PM 2:22PM Cataract Senile Nuclear NEW PATIENT WITH REFERRAL Michael Quiñonez MD [facility] 05/28/2020 8:37AM 10:08AM Dry Eye Syndrome, Ca taract Senile Nuclear, Vitreous Disorders Degeneration Insurance Includes: Active Insurance Policies Plan Name Member ID Group # Subscriber Relationship Effective Da sally 1 - Medicare Part B [facility] ([facility] [id number] Cindy Bertha of Self 2 - [facility] Health Plan [facility] [id number] Jaron Cardozo Advance Directives Includes: Current Advance DirectivesNo Advance Directives Recorded Health Concerns Includes: Active Health ConcernsNo Active Health Concerns Recorded Goals Includes: Active GoalsNo Active Goals Recorded Interventions Includes: Interventions for active GoalsNo Interventions Recorded Evaluations & Outcomes Includes: Evaluations & Outcomes for active GoalsNo Outcomes Recorded
--- OUTSIDE RECORDS SUMMARY | 2020-07-30 09:33 | CCD ---
Author Author [facility] Organization [facility] Address Unknown Phone Unavailable Care Team Providers Care Manager Video Name Role Phone Joey Sosa MD Unavailable [...] Unavailable NIKOLAY SILVA MD Unavailable Unavailable HARLEY, Avila GOLDEN MD Unavailable Unavailable HARLEY, Avila GOLDEN MD Unavailable Unavailable HARLEY, Avila GOLDEN MD Unavailable Unavailable HARLEY, Avila GOLDEN MD Unavailable Unavailable HARLEY, O CHICO BINGHAM Unavailable Unavailable HARLEY, O CHICO B[place] Unavailable Unavailable HARLEY, Avila GOLDEN MD Unavailable Unavailable HARLEY, O CHICO [place] Unavailable Unavailable HARLEY, Avila GOLDEN MD Unavailable Unavailable HARLEY, Avila GOLDEN MD Unavailable Unavailable HARLEY, O CHICO BINGHAM Unavailable Unavailable HARLEY, O CHICO BING[place] Unavailable Unavailable HARLEY, O CHICO BINGH[place] Unavailable Unavailable HARLEY, O CHICO BING[place]AM Unavailable Unavailable HARLEY, O CHICO B[place] Unavailable Unavailable HARLEY, O CHICO B[place] Unavailable Unavailable HARLEY, O CHICO [place] Unavailable Unavailable HARLEY, O CHICO [place] Unavailable Unavailable HARLEY, Avila GOLDEN MD Unavailable Unavailable HARLEY, Avila GOLDEN MD Unavailable Unavailable HARLEY, Avila GOLDEN MD Unavailable Unavailable HARLEY, Avila GOLDEN MD Unavailable Unavailable HARLEY, Avila GOLDEN MD Unavailable Unavailable HARLEY, Avila GOLDEN MD Unavailable Unavailable HARLEY, Avila GOLDEN MD Unavailable Unavailable HARLEY, Avila GOLDEN MD Unavailable Unavailable HARLEY, Avila GOLDEN MD Unavailable Unavailable HARLEY, Avila GOLDEN MD Unavailable Unavailable HARLEY, Avila GOLDEN MD Unavailable Unavailable HARLEY, O CHICO [place] Unavailable Unavailable HARLEY, O CHICO [place] Unavailable Unavailable HARLEY, Avila GOLDEN MD Unavailable Unavailable HARLEY, Avila GOLDEN MD Unavailable Unavailable HARLEY, Avila GOLDEN MD Unavailable Unavailable HARLEY, Avila GOLDEN MD Unavailable Unavailable HARLEY, Avila GOLDEN MD Unavailable Unavailable HARLEY, Avila GOLDEN MD Unavailable Unavailable HARLEY, Avila GOLDEN MD Unavailable Unavailable HARLEY, Avila GOLDEN MD Unavailable Unavailable HARLEY, Avila GOLDEN MD Unavailable Unavailable HARLEY, Avila GOLDEN MD Unavailable Unavailable HARLEY, Avila GOLDEN MD Unavailable Unavailable NIKOLAY SILVA MD Unavailable [...] MAQBOOL PAM MD Unavailable Unavailable SHIRA, MAQBOOL APM MD Unavailable Unavailable SHIRA, MAQBOOL PAM MD [...] MAQBOOL PAM MD Unavailable Unavailable SHIRA, MAQBOOL APM MD Unavailable Unavailable SHIRA, MAQBOOL PAM MD Unavailable Unavailable SHIRA, MAQBOOL PAM MD Unavailable Unavailable SHIRA, MAQBOOL PAM MD Unavailable Unavailable SHIRA, MAQBOOL PAM MD Unavailable Unavailable SHIRA, MAQBOOL PAM MD Unavailable Unavailable SHIRA, MAQBOOL PAM MD Unavailable Unavailable SHIRA, MAQBOOL PAM MD Unavailable Unavailable SHIRA, MAQBOOL PAM MD Unavailable Unavailable SHIRA, MAQBOOL PMA MD Unavailable Unavailable SHIRA, MAQBOOL PAM MD [...] Unavailable SHIRA, MAQBOOL PAM MD Unavailable Unavailable Xavier Cardona MD Unavailable [...] Unavailable Unavailable Xavier Cardona MD Unavailable Unavailable Bogositennille, Xavier Douglas MD [...] Unavailable Bogositennille, Xavier Douglas MD Unavailable Unavailable BogosiXavier null MD Unavailable Unavailable Bogositennille, Xavier Douglas MD [...] Unavailable Unavailable Bogosian, P Misael Unavailable Unavailable Lopez, R Riya CARD RUNNER Unavailable Unavailable Lopez, R Riya CARD RUNNER Unavailable Unavailable Lpoez, R Riya CARD RUNNER Unavailable Unavailable Lopez, R Riya CARD RUNNER Unavailable Unavailable Lopez, R Riya CARD RUNNER Unavailable Unavailable Lopez, R Riya CARD RUNNER Unavailable Unavailable Lopez, R Riya CARD RUNNER Unavailable Unavailable Lopez, R Riya CARD RUNNER Unavailable Unavailable Lopez, R Riya CARD RUNNER Unavailable Unavailable Lopez, R Riya CARD RUNNER Unavailable Unavailable Lopez, R Riya CARD RUNNER Unavailable Unavailable Lopez, R Riya CARD RUNNER Unavailable Unavailable Lopez, R Riya CARD RUNNER Unavailable Unavailable Lopez, R Riya CARD RUNNER Unavailable Unavailable Lopez, R Riya CARD RUNNER Unavailable Unavailable Lopez, R Riya CARD RUNNER Unavailable Unavailable Lopez, R Riya CARD RUNNER Unavailable Unavailable Lopez, R Riya CARD RUNNER Unavailable Unavailable Lopez, R Riya CARD RUNNER Unavailable Unavailable Lopez, R Riya CARD RUNNER Unavailable Unavailable Lopez, R Riya CARD RUNNER Unavailable Unavailable Lopez, R Riya CARD RUNNER Unavailable Unavailable Lopez, R Riya CARD RUNNER Unavailable Unavailable Lopez, R Riya CARD RUNNER Unavailable Unavailable Lopez, R Riya CARD RUNNER Unavailable Unavailable Lopez, R Riya CARD RUNNER Unavailable Unavailable Lopez, R Riya CARD RUNNER Unavailable Unavailable Lopez, R Riya CARD RUNNER Unavailable Unavailable Lopez, R Riya CARD RUNNER Unavailable Unavailable Lopez, R Riya CARD RUNNER Unavailable Unavailable Lopez, R Riya CARD RUNNER Unavailable Unavailable Lopez, R Riya CARD RUNNER Unavailable Unavailable Linda REEVES DO Unavailable [phone] Linda REEVES DO Unavailable [phone] Linda REEVES DO Unavailable [phone] Linda REEVES DO Unavailable +[phone] Linda REEVES DO Unavailable +[phone] NEAL, A. GRACIA DO Unavailable [phone] Linda REEVESEW DO Unavailable +[phone] NEALLindaEW DO Unavailable +[phone] Linda REEVESEW DO Unavailable +[phone] Linda REEVESEW DO Unavailable +[phone] NEALLindaEW DO Unavailable +[phone] Linda REEVESEW DO Unavailable +[phone] Linda REEVESEW DO Unavailable +[phone] NEALLindaEW DO Unavailable +[phone] Linda REEVESEW DO Unavailable +[phone] Linda REEVESEW DO Unavailable +[phone] NEAL Linda LEAVITTEW DO Unavailable +[phone] NEAL Linda LEAVITTEW DO Unavailable +[phone] Linda REEVESEW DO Unavailable +[phone] NEALLindaEW DO Unavailable +[phone] NEALLindaEW DO Unavailable +[phone] Dani, J Connie [...] Unavailable Unavailable Dani, J Connie Unavailable Unavailable Re-disclosure Warning The records that [...] is protected by Article 27-F of the [facility] Public Health law. If you continue you may have access to information: Regarding HIV / AIDS; Provided by facilities licensed or operated by the [facility] Office of Mental Health; or Provided by the [facility] Office for People With Developmental Disabilities. If such information is present, then the following [facility] mandated warning applies: This information has [...] law may result in a fine or intermediate sentence or both. A general authorization for the release of medical or other information is NOT sufficient authorization for further disc losure. Allergies and Adverse Reactions Type Description Substance Reaction Status Data Source(s ) Allergy to substance No Known Allergies No known allergies (situation ) ANJEL (Jaron Joiner MD [facility]) Allergy to substance No Known Allergies No known allergies (situation ) ANJEL (Jaron Joiner MD [facility]) Allergy to substance No Known Allergies No known allergies (situation ) ANJEL (Jaron Joiner MD [facility]) No Known Allergies No Known Allergies [facility] Family History Family Member Name Family Member Gender Family Member Status Date o f Status Description Data Source(s) Unknown Unknown Encounters Encounter Providers Location Date Indications Data Source(s ) Outpatient<td ID="encounterTypeDescripti onID0">POST OP VISIT WITH PRE- OP</td><td>Gracia Reeves DO</td><td>Jaron Ravi MD [facility]</td><td>07/24/2020</td><td>12:52PM</td><td>2:13PM</td><td><content ID="encounterDiagnosisID0-0">Pseudophakia</content>, <content ID="encounterDiagnosisID0-1">Cataract Senile Nuclear</content></td> Attender: GRACIA Quiñonez MD [facility] 07/24/2020 12:52:00 PM EST - 07/24/2020 02:13:00 PM EST PseudophakiaCataract Senile Nuclear ANJEL (Jaron Joiner MD [facility]) Pseudophakia Cataract Senile Nuclear Outpatient<td ID="encounterTypeDescripti onID2">1 WK PREOP FOR SURGERY</td><td>Gracia Reeves DO</td><td>Jaron Ravi MD [facility]</td><td>07/08/2020</td><td>1:45PM</td><td>2:22PM</td><td><content ID="encounterDiagnosisID2-0">Cataract Senile Nuclear</content></td> Attender: GRACIA Quiñonez MD [facility] 07/08/2020 01:45:00 PM EST - 07/08/2020 02:22:00 PM EST Cataract Senile NuclearCataract Senile Nuclear ANJEL (Jaron Joiner MD [facility]) Cataract Senile Nuclear Cataract Senile Nuclear Outpatient<td ID="encounterTypeDescripti onID1">Extracapsular cataract removal w/IOL implant</td><td>Gracia Reeves DO</td><td>[facility]</td><td>07/23/2020</td><td>07/08/2020 9:00AM</td><td>7:11AM</td><td></td> Attender: GRACIA REEVES DO [facility] 06/13 09:00:00 AM EST - 07/23/2020 07:11:00 AM EST ANJEL (Jaron Joiner MD [facility]) Office Visit, Est Pt., Level [address] [place] [address] 06/15/2020 12:00:00 AM EST eCW1 ([facility]) Outpatient<td ID="encounterTypeDescripti onID3">NEW PATIENT WITH REFERRAL</td><td>Gracia Reeves DO</td><td>Jaron Ravi MD [facility]</td><td>05/28/2020</td><td>8:37AM</td><td>10:08AM</td><td><content ID="encounterDiagnosisID3-0">Dry Eye Syndrome</content>, <content ID="encounterDiagnosisID3-1">Cataract Senile Nuclear</content>, <content ID="encounterDiagnosisID3-2">Vitreous Disorders Degeneration</content></td> Attender: GRACIA Quiñonez MD [facility] 05/28/2020 08:37:00 AM EST - 05/28/2020 10:08:00 AM EST Vitreous Disorders DegenerationCataract Senile NuclearDry Eye SyndromeVitreous Disorders DegenerationCataract Senile NuclearDry Eye SyndromeVitreous Disorders DegenerationCataract Senile NuclearDry Eye Syndrome ANJEL (Jaron Joiner MD [facility]) Vitreous Disorders Degeneration Cataract Senile Nuclear Dry Eye Syndrome Vitreous Disorders Degeneration Cataract Senile Nuclear Dry Eye Syndrome Vitreous Disorders Degeneration Cataract Senile Nuclear Dry Eye Syndrome Outpatient Admitter: PAM SILVA MDReferrer: PAM SILVA MD 02/14/2020 12:00:00 AM EDT Malignant neoplasm of unspecified site o f unspecified female breast [facility] Malignant neoplasm of unspecified site o f unspecified female breast Outpatient Attender: Riya Lopez NPReferrer: PAM Guerra MD 02/12/2020 03:41:35 PM EDT [facility] Outpatient Attender: Joey Sosa MDReferrer: PAM SILVA MD 02/07/2020 12:00:00 AM EDT [facility] Outpatient Attender: Connie Louise 02/07/2020 12:00:00 AM [facility] Outpatient Attender: Joey Sosa MDReferrer: PAM SILVA MD 02/07/2020 12:00:00 AM [facility] Outpatient Attender: Praveen Mccartybarbara 02/07/2020 12:00:00 AM [facility] Outpatient Attender: Connie Louise 02/07/2020 12:00:00 AM [facility] Recurring Patient Attender: Mac Khan MDReferrer: Misael gross MD 02/05/2020 01:51:19 PM EDT [facility] Outpatient Attender: CHICO Mtz/Itzel/Jono/Jenni indl 01/31/2020 01:45:00 PM EDT MED[facility] ([facility] Outpatient Referrer: PAM SILVA MD 01/31/2020 12:00:00 A M [facility] Recurring Patient Referrer: PAM SILVA MD 01/27/2020 06: 54:57 AM EDT [facility] Outpatient 01/22/2020 08:13:01 AM EDT [facility] Outpatient 12/23/2019 10:09:33 AM EDT [facility] Recurring Patient Referrer: PAM SILVA MD 12/18/2019 03: 02:29 PM EDT [facility] Outpatient 12/18/2019 01:58:18 PM EDT [facility] Dermatology [address] [place] [address] 09/10/2019 12:00:00 AM EDT eCW1 ([facility]) Outpatient Attender: PAM SILVA MDConsultant: PAM Guerra MD 08/19/2019 12:01:00 PM EDT - 08/19/2019 01:01:00 PM EDT [facility] [address] [facility], [facility] [address] 06/13/2019 12:00:00 AM EST eCW1 ([facility]) Medications Medication Brand Name Start Date Product Form Dose Route Admi nistrative Instructions Pharmacy Instructions Status Indications Reaction Description Data Source(s) moxifloxacin 5 MG/ML Ophthalmic Solution Moxifloxacin HCl 0.5% Ophthalmic Solution Moxifloxacin HCl 0.5% Ophthalmic Solution 07/08/2020 12:00:00 AM EST active moxifloxacin 5 MG/ML Oph thalmic Solution ANJEL (Jaron Joiner MD [facility]) Inveltys 1% Ophthalmic Suspension Inveltys 1% Ophthalmic Maile pension 07/08/2020 12:00:00 AM EST active loteprednol etabonate 10 MG/ML Ophthalmic Suspension [Inveltys] ANJEL (Jaron Joiner MD [facility]) BromSite 0.075% Ophthalmic Solution BromSite 0.075% Ophthalm ic Solution 07/08/2020 12:00:00 AM EST active bromfenac 0.75 MG/ML Ophthalmic Solution [Bromsite] ANJEL (Jaron Joiner MD [facility]) letrozole 2.5 MG Oral Tablet [Femara] Femara 2.5 MG Femara 2 .5 MG 06/15/2020 12:00:00 AM EST 1.0 {tablet} active Fe carol 2.5 MG eCW1 ([facility]) Hydrochlorothiazide 25 MG Oral Tablet hydroCHLOROthiaz nadiya 25 MG Oral Tablet hydroCHLOROthiazide 25 MG Oral Tablet 05/28/2020 12:00:00 AM EST 1 active hydrochlorothiazide 25 MG Oral T ablet ANJEL (Jaron Joiner MD [facility]) Multivitamin Oral Tablet Multivitamin Oral Tablet 05/28/2020 12:00: 00 AM EST 1 active Multivitamin ANJEL (Ingrid Joiner MD [facility]) Calcium 600 MG Oral Tablet Calcium 600 MG Oral Tablet 2019 12:00:00 AM EST 1 active Calcium ANJEL (Jaron Joiner MD [facility]) ezetimibe 10 MG / Simvastatin 20 MG Oral Tablet [Vytorin] Vytorin 10-20 MG Oral Tablet Vytorin 10-20 MG Oral Tablet 05/28/2020 12:00:00 AM EST 1 active ezetimibe 10 MG / simvastatin 20 MG Oral Tablet [Vytorin] ANJEL (Jaron Joiner MD [facility]) Metoprolol 100 MG Oral Tablet Metoprolol 100 MG Oral Tablet 05/28/2020 12:00:00 AM EST 1 active Metoprolol GREENW AY (Jaron Joiner MD [facility]) Losartan Potassium 100 MG Oral Tablet Losartan Potassium 100 MG Oral Tablet 05/28/2020 12:00:00 AM EST 1 active losartan potassium 100 MG Oral Tablet ANJEL (Jaron Joiner MD [facility]) letrozole 2.5 MG Oral Tablet Letrozole 2.5 MG Oral Tab let Letrozole 2.5 MG Oral Tablet 05/28/2020 12:00:00 AM EST 1 active letrozole 2.5 MG Oral Tablet ANJEL (Jaron Joiner MD [facility]) solifenacin succinate 5 MG Oral Tablet [VESICARE] VESI care 5 MG Oral Tablet VESIcare 5 MG Oral Tablet 05/28/2020 12:00:00 AM EST 1 active solifenacin succinate 5 MG Oral Tablet [Vesicare] ANJEL (Jaron Joiner MD [facility]) Albuterol 0.83 MG/ML Inhalant Solution Albuterol Sulfate 0 07/28/2019 12:00:00 AM EST active MEDENT ([facility], [facility]) Doxycycline Monohydrate 100 MG Oral Capsule Doxycycline Webb hydrate 07/28/2019 12:00:00 AM EST ORAL active M EDENT ([facility], [facility]) Insurance Providers Payer name Policy type / Coverage type Policy ID Covered democrat ID Covered democrat's relationship to benavidez Policy Benavidez Plan Information MEDICARE [id number] SP [id number] [facility] HE[facility]ARE [id number] SP [id number] Medicare Part B [facility] Other 0 Se lf 0 Medicare Part B [facility] Other 0 Se lf 0 MEDICARE [id number] SP [id number] Medicare Part B [facility] Other 0 Se lf 0 MVP H [id number] Self [id number] MEDICARE A [id number] Self [id number] A DME Jurisdiction A [facility] C [id number] SELF [id number] Medicare C [id number] SELF [id number] MVP Healthcare F [id number] SELF [id number] MVP H [id number] Self [id number] Medicare [facility] [id number] 18 [id number] MV [id number] 18 [id number] 000 MEDICARE PART A -O/P [id number] 18 [id number] [facility] HEALTH INSURANCE COMPANY-O/P [id number] 18 [id number] MEDICARE PART A -O/P [id number] 18 [id number] ANSI-Not a Secondary Insurance [id number] ANSI-Medicare Part B [id number] [facility] [id number] Ingrid [id number] 000 MEDICARE [id number] Ingrid [id number] [id number] P PI PI MEDICARE PI PI ANSI-Not a Secondary Insurance [id number] ANSI-Medicare Part B [id number] MEDICARE [id number] SP [id number] A MEDICARE [id number] SP [id number] A [facility] HEALTH CARE [id number] SP [id number] DME Jurisdiction A [facility] C [id number] SELF [id number] Medicare C [id number] SELF [id number] A Medicare [place] [id number] 18 [id number] [facility] HEALTH INSURANCE COMPANY-CLINIC [id number] 01 [id number] MEDICARE PART A -CLINIC [id number] 18 [id number] [facility] Commercial Self Medicare Natl Gov't Servi Medicare Primary Self [facility] [id number] SP [id number] MEDICARE -O/P [id number] 18 [id number] [facility] [id number] 18 [id number] 000 Problems, Conditions, and Diagnoses Code Display Name Description Problem Type Effective Dates Data Source(s) V43.1 Pseudophakia Pseudophakia Problem 07/24/2020 12:00:00 A M EST ANJEL (Jaron Joiner MD [facility]) D22.71 [id number] Melanocytic nevi of right lower limb, inc luding hip Problem 06/15/2020 12:00:00 AM EST eCW1 ([facility]) D22.72 [id number] Melanocytic nevi of left lower l imb, including hip Problem 06/15/2020 12:00:00 AM EST eCW1 ([facility]) D22.4 [id number] Melanocytic nevi of scalp and neck Proble m 06/15/2020 12:00:00 AM EST eCW1 ([facility]) 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 Problem 12:00:00 AM EST eCW1 ([facility]) D22.61 [id number] Melanocytic nevi of right upper limb, including shoulder Problem 06/15/2020 12:00:00 AM EST eCW1 ([facility]) D22.62 [id number] Melanocytic nevi of left upper l imb, including shoulder Problem 06/15/2020 12:00:00 AM EST eCW1 ([facility]) 379.21 Vitreous Disorders Degeneration Vitreous Disorders Deg eneration Problem 05/29/2020 12:00:00 AM EST ANJEL (Jaron Joiner MD [facility]) 375.15 Dry Eye Syndrome Dry Eye Syndrome Problem 05/29/2020 12 :00:00 AM EST ANJEL (Jaron Joiner MD [facility]) 366.16 Cataract Senile Nuclear Cataract Senile Nuclear Proble m 05/29/2020 12:00:00 AM EST ANJEL (Jaron Joiner MD [facility]) 379.21 Vitreous Disorders Degeneration Vitreous Disorders Deg eneration Problem 05/29/2020 12:00:00 AM EST ANJEL (Jaron Joiner MD [facility]) 375.15 Dry Eye Syndrome Dry Eye Syndrome Problem 05/29/2020 12 :00:00 AM EST ANJEL (Jaron Joiner MD [facility]) 366.16 Cataract Senile Nuclear Cataract Senile Nuclear Proble m 05/29/2020 12:00:00 AM EST ANJEL (Jaron Joiner MD [facility]) 379.21 Vitreous Disorders Degeneration Vitreous Disorders Deg eneration Problem 05/29/2020 12:00:00 AM EST ANJEL (Jaron Joiner MD [facility]) 375.15 Dry Eye Syndrome Dry Eye Syndrome Problem 05/29/2020 12 :00:00 AM EST ANJEL (Jaron Joiner MD [facility]) 366.16 Cataract Senile Nuclear Cataract Senile Nuclear Proble m 05/29/2020 12:00:00 AM EST ANJEL (Jaron Joiner MD [facility]) [id number] Essential hypertension Essential hypertension Problem 01/31/2020 12:00:00 AM EDT [facility] ([facility], ) C50.919 Malignant neoplasm of unspecified site o f unspecified female breast Malignant neoplasm of unspecified site of unspecified female breast Diagnosis 02/14/2020 02:24:00 PM EDT [facility] Z853 Personal history of malignant neoplasm o f breast Personal history of malignant neoplasm of breast Diagnosis 08/19/2019 12:01:00 PM EDT [facility] M1380 Other specified arthritis, unspecified s ite Other specified arthritis, unspecified site Diagnosis 08/19/2019 12:01:00 PM EDT [facility] [id number] Pain in left leg Pain in left leg Diagnosis 08/19/2019 12 :01:00 PM EDT [facility] [id number] Pain in left hip Pain in left hip Diagnosis 08/19/2019 12 :01:00 PM T [facility] Surgeries/Procedures Procedure Description Date Indications Data Source(s) Extraction of cataract (procedure) History of cataract extraction PCIOL OS by Dr. Reeves 07/23/2020 07/24/2020 12:00:00 AM EST ANJEL (Jaron Joiner MD [facility]) OPH BMTRY PRTL COHER INTRFRMTRY IO LENS PWR NOLVIA Ophtha lmic biometry - IOL Master with IOL calculation (Left side, WAIVER OF LIABILITY ON FILE (ABN)) 07/08/2020 12:00:00 AM EST ANJEL (Jaron Joiner MD [facility]) Intermediate Eye Exam Established Patient (Signi/Sep E alfonzo. & Man.) Intermediate Eye Exam Established Patient (Signi/Sep Eval. & Man.) 07/08/2020 12:00:00 AM EST ANJEL (Jaron Joiner MD [facility]) Surgical / procedural history Knee Repl acement October 2018, Breast Cancer Surgery 2019 Surgical / procedural history Knee Repl acement October 2018, Breast Cancer Surgery 201905/28/2020 12:00:00 AM EST ANJEL (Shan Joiner MD [facility]) Medical Eye Exam Medical Eye Exam 05/28/2020 12:00:00 AM EST ANJEL (Jaron Joiner MD [facility]) Medical Eye Exam Medical Eye Exam 05/28/2020 12:00:00 AM EST ANJEL (Jaron Joiner MD [facility]) TANGNTL BX SKIN SINGLE LES 09/10/2019 12:00:00 AM EDT eCW1 ([facility]) DESTROY BENIGN/PREMLG LESION 09/10/2019 12:00:00 AM ED T eCW1 ([facility]) Office Visit, Est Pt., Level 4 PC 06/13/2019 12:00:00 AM EST eCW1 ([facility]) DESTROY LESIONS, 2-14 06/13/2019 12:00:00 AM EST eCW1 ([facility]) DESTRUCT B9 LESION 1-14 06/13/2019 12:00:00 AM EST eCW1 ([facility]) Results ID Date Data Source [id number] 07/25/2020 09:00:00 AM EST [facility] Name Value Range Interpretation Code Description Data Vivien rce(s) Supporting Document(s) SARS coronavirus 2 RNA Not Detected [facility] [place] This lab was ordered by [facility] and reported by [facility]. ID Date Data Source [id number] 07/18/2020 09:15:00 AM EST [facility] Name Value Range Interpretation Code Description Data Vivien rce(s) Supporting Document(s) SARS coronavirus 2 RNA Not Detected [facility] [place] This lab was ordered by [facility] and reported by [facility]. ID Date Data Source 03/02/2020 04:10:00 PM EDT [facility] Name Value Range Interpretation Code Description Data Vivien rce(s) Supporting Document(s) SARS coronavirus 2 RNA panel N [facility] This lab was ordered by [facility] and reported by [facility]. 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 CALCIFICATIONS: Present.ESTROGEN RECEPTORS: Positive (moderate to strong intensity in 95% of tumorcells).PROGESTERONE RECEPTORS: Positive (moderate to strong intensity in 95% oftumor cells).HER2: Negative (1+). Electronically Signed By Al Pabon MD;, Attending Pathologist02/24/2020 09:05:04 Gross DescriptionReceived from [facility] in [place], [place], are 6 H and E stained slides and 7specially stained slides labeled [id number], with the correspondingpathology report. Microscopic DescriptionThe biopsy [...] developed and their performance characteristics determined by [facility] Pathology department. They have not been cleared or approved by the USFood and Drug Administration. The FDA has determined that such clearanceor approval is not necessary. Name Value Range Interpretation Code Description Data Vivien rce(s) Supporting Document(s) ID Date Data Source [id number] 02/12/2020 03:41:35 PM EDT [facility], PCName: Cindy CardozoDOB: 1945Provider: David Lopez: 02/05/2020 History of Present [...] in the office. Indication: pain/dysfunction.); Status:Complete; Done: 05Feb2020 Perform:SOS28; Due:19Feb2020; Last Updated By:Gaurav Gallego; 02/05/2020 2:06:42 PM;Ordered; For:Right knee pain; Ordered By:Riya Lopez;Weight Bearing Status : Weight bearing X-Ray I Knee - 3 views (XRays were ordered, obtained and interpreted today in theoffice. Indication: pain/dysfunction.); Status:Complete; Done: [id number] Perform:SOS28; Due:23Ncr0590; Last Updated By:Gaurav Gallego; 02/05/2020 2:06:42 PM;Ordered; For:Right knee pain; Ordered By:Riya LopezjkWeight Bearing Status : Weight bearingLaterality: : Right Signatures Electronically signed by : Riya Lopez NP; Feb 06 2020 9:22AM EST (Author) Electronically signed by : Misael Cardona M.D.; Feb 12 2020 3:41PM EST Name Value Range Interpretation Code Description Data Vivien rce(s) Supporting Document(s) ID Date Data Source [id number] 01/27/2020 12:22:02 PM EDT [facility] [...] rce(s) Supporting Document(s) ID Date Data Source [id number] 12/18/2019 03:01:03 PM EDT [facility] BILATERAL DIGITAL SCREENING BREAST TOMOS YNTHESIS MAMMOGRAMBilateral Digital Screening breast tomosynthesis/mammogram with R2 computer aided detection.CLINICAL HISTORYLast clinical breast exam: April [id number] through 2018BREAST CANCER RISK ASSESSMENT5 Year Risk [...] [facility] I discussed the findings with and gave a result letter to the patient at----- Page Break ----- the time of imaging. She has been added to our reminder notification system.Thank you for the opportunity to participate in the care of this patient.BI-RADS: 4 Suspicious Abnormality.ACR Density B(2) Name Value Range Interpretation Code Description Data Vivien rce(s) Supporting Document(s) ID Date Data Source [id number] 08/21/2019 10:05:00 AM EDT [facility] [address] [place] [address] PHONE: [phone] FAX: [phone] Name .................. : INOCENCIO Sharma Acct Number.................. : [id number] ROOM. ................. : MR Number ................... : [id number] Stay type ............. : O/P Discharge Date......... ... : 08/19/19 Admit Date ......... : 08/19/19 Admit Phys .................... : SHIRA DESHAUN Date of ....... : 1945 Family Phys ................... : SHIRA DESHAUN Phone .................. : [phone] Age ................................ : 74 Film# .................. .:[id number] Sex ................................. : F Unsigned transcriptions are preliminary reports and do not represent a medical or legal document FEMUR MIN 2 VIEWS [place] [id number] COMPLETE:08/19/19 12:21 NOHEMI [id number] (REASON FOR PROCESS: HX OF CANCER; PAIN; [place] [id number] COMPLETE:08/19/19 12:20 NOHEMI [id number] (REASON FOR HIP: HX OF CANCER; PAIN; [...] MD , 08/21/19 10:05, AML Transcribe Initials: DZ , Transcribe Date: 08/19/19 12:59, Dictation Date: Copy for: SHIRA OROZCO via modem Copy for: [address] [facility] REC Page 1 of 1 Name Value Range Interpretation Code Description Data Vivien rce(s) Supporting Document(s) ID Date Data Source [id number] 08/21/2019 10:05:00 AM EDT [facility] [address] [place] [address] PHONE: [phone] FAX: [phone] Name .................. : INOCENCIO Sharma Acct Number.................. : [id number] ROOM. ................. : Number ................... : [id number] Stay type ............. : O/P Discharge Date......... ... : 08/19/19 Admit Date ......... : 08/19/19 Admit Phys .................... : SHIRA DESHAUN Date of ....... : 1945 Family Phys ................... : SHIRA DESHAUN Phone .................. : [phone] Age ................................ : 74 Film# .................. .:[id number] Sex ................................. : F Unsigned transcriptions are preliminary reports and do not represent a medical or legal document FEMUR MIN 2 VIEWS LT [id number] COMPLETE:08/19/19 12:21 NOHEMI [id number] (REASON FOR PROCESS: HX OF CANCER; PAIN; [place] [id number] COMPLETE:08/19/19 12:20 NOHEMI [id number] (REASON FOR HIP: HX OF CANCER; PAIN; [...] femur. Electronically Reviewed and Signed By Petar Birmignham MD , 08/21/19 10:05, [facility] Transcribe Initials: BONILLA , Transcribe Date: 08/19/19 12:59, Dictation Date: Copy for: SHIRA OROZCO via 3DMGAME Copy for: [address] [place] [address] REC Page 1 of 1 Name Value Range Interpretation Code Description Data Vivien rce(s) Supporting Document(s) Procedure Social History Code Duration Value Status Description Data Source(s ) Smoking 07/24/2020 02:18:02 PM EST Never smoked tobacco (findi ng) completed Never smoked tobacco (finding) ANJEL (Jaron Joiner MD [facility]) Smoking 07/08/2020 04:09:23 PM EST Never smoked tobacco (findi ng) completed Never smoked tobacco (finding) ANJEL (Jaron Joiner MD [facility]) Smoking 06/15/2020 12:00:00 AM EST Former Smoker completed Former Smoker eCW1 ([facility]) Smoking 05/29/2020 03:33:22 PM EST Never smoked tobacco (findi ng) completed Never smoked tobacco (finding) ANJEL (Jaron Joiner MD [facility]) Vital Signs ID Date Data Source UNK Name Value Range Interpretation Code Description Data Source(s) Diastolic blood pressure 74 mm[Hg] 74 mm[Hg] eCW1 ([facility]) Systolic blood pressure 126 mm[Hg] 126 mm[Hg] e CW1 ([facility]) Body mass index (BMI) [Ratio] 33.12 kg/m2 33.12 kg/m2 eCW1 ([facility]) Body height 63 [in_i] 63 [in_i] eCW1 ([facility], [facility]) Body weight 187 [lb_av] 187 [lb_av] eCW1 ([facility]) Body surface area Derived from formula 1.91 m2 1.91 m2 MEDENT ([facility]) Body weight 86.184 kg 86.184 kg [facility] [place] body weight 120 [lb_av] 120 [lb_av] MEDEN T ([facility]) Body mass index (BMI) [Ratio] 32.6 kg/m2 32.6 k g/m2 MEDENT ([facility]) Body weight 190.00 [lb_av] 190.00 [lb_av] MEDEN T ([facility]) Body height 64 [in_i] 64 [in_i] [facility] 5'4" Respiratory rate 16 /min 16 /min [facility] ( [facility]) Heart rate 74 /min 74 /min [facility] ([facility]) Diastolic blood pressure 82 mm[Hg] 82 mm[Hg] MEDENT ([facility]) Systolic blood pressure 128 mm[Hg] 128 mm[Hg] M EDENT ([facility]) Diastolic blood pressure 78 mm[Hg] 78 mm[Hg] eCW1 ([facility]) Systolic blood pressure 118 mm[Hg] 118 mm[Hg] e CW1 ([facility]) Body mass index (BMI) [Ratio] 33.48 kg/m2 33.48 kg/m2 eCW1 ([facility]) Body height 63 [in_us] 63 [in_us] eCW1 ([facility], [facility]) Body weight Measured 189 [lb_av] 189 [lb_av] eC W1 ([facility]) Body mass index (BMI) [Ratio] 33.7 kg/m2 33.7 k g/m2 MEDENT ([facility]) Body height 63 [in_i] 63 [in_i] MEDENT ([facility]) 5'3" Body weight 190.00 [lb_av] 190.00 [lb_av] MEDEN T ([facility], [facility]) Body temperature 98.4 [degF] 98.4 [degF] MEDENT ([facility]) Oxygen saturation in Arterial blood by Pulse oximetry 98 % 98 % MEDENT ([facility]) Respiratory rate 16 /min 16 /min MEDENT ( [facility]) Heart rate 69 /min 69 /min MEDENT ([facility], [facility]) Diastolic blood pressure 83 mm[Hg] 83 mm[Hg] MEDENT ([facility]) Systolic blood pressure 136 mm[Hg] 136 mm[Hg] M EDENT ([facility]) Diastolic blood pressure 76 mm[Hg] 76 mm[Hg] eCW1 ([facility]) Systolic blood pressure 122 mm[Hg] 122 mm[Hg] e CW1 ([facility]) Body temperature 97.7 [degF] 97.7 [degF] eCW1 ( [facility]) Respiratory rate 18 /min 18 /min eCW1 ([facility]) Heart rate 64 /min 64 /min eCW1 ([facility]) Body mass index (BMI) [Ratio] 33.83 kg/m2 33.83 kg/m2 eCW1 ([facility]) Body height 63 [in_us] 63 [in_us] eCW1 ([facility], [facility]) Body weight Measured 191 [lb_av] 191 [lb_av] eC W1 ([facility]) Patient Treatment Plan of Care Planned Activity Planned Date Details Description Data Source (s) Inveltys 1% Ophthalmic Suspension 07/08/2020 12:00:00 AM [facility] (Jaron Joiner MD [facility]) BromSite 0.075% Ophthalmic Solution 07/08/2020 12:00:00 AM EST ANJEL (Jaron Joiner MD [facility]) moxifloxacin 5 MG/ML Ophthalmic Solution 07/08/2020 12:00:00 AM [facility] (Jaron Joiner MD [facility])
[2020-07-30] MEDS ORDERED: BSS IRR 500ML/OMIDRIA 4ML IRR BAG (OR ONLY) As Ordered ONE (11:31)
[2020-07-30 11:56] VITALS: BP 140/65
--- NOTE | 2020-07-31 09:49 | RO ---
OPERATIVE NOTE DATE OF OPERATION: 07/30/2020 PREOPERATIVE DIAGNOSIS: 1. Visually significant nuclear sclerotic cataract, right eye. POSTOPERATIVE DIAGNOSIS: 1. Visually significant nuclear sclerotic cataract, right eye. PROCEDURE: 1. Cataract extraction with use of phacoemulsification, and placement of intraocular lens, AU00T0, 25.5 D, right eye. SURGEON: Michael Reeves DO ANESTHESIA: Local (Omidria with MAC) COMPLICATIONS: None POSTOPERATIVE CONDITION: Stable INDICATIONS FOR SURGERY: 1. Blurred vision affecting patient's activities of daily living. DESCRIPTION OF PROCEDURE: The patient was seen in the preoperative area and properly identified. The correct operative eye was identified and marked. The patient received topical anesthetic, antibiotics, and topical dilating drops. The patient was then transferred to the operating room. The correct side was re-identified and a time-out was performed. The eye was prepped and draped in a sterile fashion. The eyelids were isolated with Tegaderm tape and the lids were held open with an adjustable speculum. A 1.0mm paracentesis incision was made. Omidria was then injected into the anterior chamber. Viscoelastic was then injected into the anterior chamber through the paracentesis. Using a 2.4mm sharp-tipped keratome, the anterior chamber was entered via a temporal clear cornea incision. A continuous curvilinear capsulorrhexis was created with Utrata forceps. Hydrodissection was performed with BSS on a blunt cannula until the nucleus was able to rotate freely. The crystalline lens was phacoemulsified and aspirated. Irrigation/aspiration was used to remove the cortical material Cohesive viscoelastic was placed into the capsular bag to deepen it. The implant was placed into the capsular bag and allowed to unfold. Placement was confirmed by visualizing the anterior capsulorrhexis. Irrigation/aspiration was used to remove the viscoelastic. The clear corneal incision was hydrated with BSS on a blunt cannula. The lens was well positioned. Intracameral antibiotic was injected into the anterior chamber. The incisions were then tested for leaks and found to be negative. The eye was then palpated for appropriate pressure and adjusted accordingly with BSS. The eyelid speculum was then carefully removed. A shield was placed over the eye. The patient tolerated the procedure well and was discharge to the recovery unit in a stable condition. DIANA
[2020-08-10] MEDS ORDERED: LETR2.5T2 PO (10:22)
== END 2020-07-30 12:40 | disposition home or self-care (01) ==
LOC: M SDC 09:27
PROVIDERS: ATTEND Ophthalmology
DX: H25.11 Age-related nuclear cataract, right eye (principal); E78.5 Hyperlipidemia, unspecified; I10 Essential (primary) hypertension; M12.9 Arthropathy, unspecified; Z78.0 Asymptomatic menopausal state; Z79.899 Other long term (current) drug therapy; Z85.3 Personal history of malignant neoplasm of breast; Z92.21 Personal history of antineoplastic chemotherapy; Z92.3 Personal history of irradiation; Z96.1 Presence of intraocular lens; Z96.651 Presence of right artificial knee joint; Z98.42 Cataract extraction status, left eye
CPT/HCPCS: 66984; J1097; J2250; J3010; V2632

== ENCOUNTER → 2020-09-03 | Outpatient (CLI) | payer MEDICARE, OTHER ==
[~2020-09-03] MED LIST changes: -CEFUROXIME 1MG/0.1ML INTRACAMERAL INJ As Ordered ONE; -DUOVISC (0.50ML VISCOAT/0.55ML PROVISC) OPHTH KIT As Ordered ONE; -MIDAZOLAM INJ 2MG/2ML VIAL (J2250 PER 1MG) As Ordered ONE; -OFLOXACIN 0.3 % (OCUFLOX) OPTH SOL 5ML OD ONE; -PHENYLEPHRINE 2.5% OPHTH SOL 2ML OD ONE; +POTA1TAB23 PO; -POVIDONE-IODINE 5% OPHTH PREP SOL 30ML As Ordered ONE; -PROPARACAINE 0.5% OPHTH SOL 15ML OD ONE; -TROPICAMIDE 1% OPHTH SOLN 2ML OD ONE; -fentaNYL 100 MCG/2 ML INJECTION (J3010) As Ordered ONE
--- NOTE | 2020-09-03 09:14 | REP ---
INDICATION: INCREASING LFT'S, BREAST CA. COMPARISON: None. TECHNIQUE: Multiple sonographic images of the abdominal right upper quadrant. FINDINGS: There are 2 mobile gallbladder calculi, 1 measuring up to 23 mm in the other measuring up to 20 mm. There is no gallbladder wall thickening or pericholecystic fluid. There is no intrahepatic or extrahepatic biliary duct dilatation. The common biliary duct measures 4 mm in diameter. The hepatic parenchyma is homogeneous. There are no hepatic masses or cysts. The liver is normal size measuring 14.2 cm craniocaudad at the midclavicular line. The pancreas is obscured by bowel gas. The right kidney measures 9.0 x 5.4 x 4.3 cm and is in the low normal size range. There is no right renal calculus, hydronephrosis, solid mass or cystic mass. There is no right upper quadrant abdominal free fluid. IMPRESSION: Cholelithiasis as described. No biliary duct dilatation. There is no ultrasound evidence of acute cholecystitis. The pancreas is obscured by bowel gas. The hepatic parenchyma is unremarkable. The right kidney is in the low normal size range but otherwise unremarkable. <Electronically signed by Peter Nguyen > 09/03/20 [id number]
== END ==
LOC: M RAD 08:38
PROVIDERS: ATTEND Internal Medicine Medical Oncology
DX: R94.5 Abnormal results of liver function studies (principal); K80.20 Calculus of gallbladder without cholecystitis without obstruction; C50.919 Malignant neoplasm of unspecified site of unspecified female breast

== ENCOUNTER → 2020-11-18 | Outpatient (CLI) | payer MEDICARE, OTHER ==
[~2020-11-18] MED LIST changes: +COVI100V IM
--- NOTE | 2020-11-18 11:24 | RADONC ---
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 She has recently been diagnosed with a mammographically detected, phenotypically distinct, second right breast cancer s/p lumpectomy on 03/03/20 @ [facility], [id number] ER/SD+ HER2- Grade 2 with negative margins. She completed adjuvant RT 40 Gy in 15 fractions with VMAT reirradiation on 05/14/20. Diagnosis/Treatment History Oncologic History 12/03/08 Right lumpectomy SLNB pT2N0(sn)M0 ER/SD- HER2+ Grade 2. 4.5 cm 04/25/09 TP chemotherapy complete 07/15/09 Completed WBI 48.6 Gy in 27 fractions and 12 Gy in 6 fractions to the tumor bed 12/18/19 Right screening mammogram with calcifications lower inner breast 01/22/20 Biopsy at [facility] with IDC ER/SD+ HER2- and DCIS 03/03/20 Lumpectomy @ [facility] [id number] Grade 2 negative margins 04/21/20-05/14/20 Adjuvant RT 40 Gy in 15 fractions with VMAT (reirradiation) 10/19/20 Mammogrm ([facility]) negative Survivorship: Test Due Next Last result Notes TSH, T4* 6m post-tx, then q1y N/A Carotid US* q10 y post-tx N/A Smoking cessation Assess annually if applicable N/A Screening CT chest q1y if eligible per USPSTF N/A Mammograms Min q1y, if breast conservation ~04/202110/19/20 negative CBC,CMP, Lipids q1y 2 DEXA q2y if on AI Per medical oncology (on AI) Interval History Reports she feels well. Only complaint is cosmesis of the right breast. Notes it is asymmetric with respect to the left, also has an indentation where the surgical scar is. Tolerating AI without side effects. Has no pain in the right breast or swelling in the arm. Appetite good, weight stable. Has pending reconstruction with Dr. Black. Current Therapy Anastrozole Stage [id number] ER/SD+ HER2- Grade 2 stag IA Social History: Non smoker Non drinker Allergies / Meds Allergies: Coded Allergies: No Known Allergies (Verified , 07/16/20) Home Meds Active Scripts Letrozole (Letrozole) 2.5 Mg Tablet, 2.5 MG PO DAILY, #90 TAB 2 Refills Prov:JEREMIAH OLIVERA MD 08/11/20 Reported Medications Covid-19 Vacc,Mrna(Moderna)/Pf (Moderna Covid19 Vacc(Unapprov)) 100 Mcg/0.5 Ml Vial, 100 MCG IM, VIAL 10/22/20 Multivitamin (Multivitamin) 1 Each Tablet, 1 EACH PO DAILY, TAB 05/22/20 Solifenacin Succinate (Vesicare) 5 Mg Tablet, 5 MG PO DAILY for 30 Days, #30 TAB 04/11/19 Calcium Carbonate (Calcium) 600 Mg Tab, 1200 MG PO DAILY, TAB 03/15/18 Ezetimibe/Simvastatin (Vytorin 10-20 mg Tablet) 1 Tab Tab, 1 TAB PO DAILY for 30 Days, #30 TAB 03/15/18 Metoprolol Succinate (Metoprolol Succinate) 100 Mg Tab, 100 MG PO DAILY, TAB 03/15/18 Hydrochlorothiazide (Hydrochlorothiazide) 25 Mg Tab, 25 MG PO DAILY, TAB 03/15/18 Losartan Potassium (Losartan Potassium) 100 Mg Tab, 100 MG PO DAILY for 30 Days, #30 TAB 03/15/18 Discontinued Scripts Potassium Chloride (Potassium Chloride) 10 Meq Tablet.er, 1 TAB PO DAILY for 5 Days, #5 TAB Prov:JEREMIAH OLIVERA MD 08/24/20 Review of Systems Review of Systems Constitutional: Denies: Fatigue, Weight Loss Eyes: Denies: Pain HEENT: Denies: Head Aches Skin: Denies: Rash Breast: Reports: Other Breast Complaints (Cosmesis); Denies: New Breast Lumps / Masses, Nipple Retraction, Nipple Discharge, Breast Skin Changes, Breast Pain or Tenderness Pulmonary: Denies: Dyspnea Cardiovascular: Denies: Chest Pain Gastrointestinal: Denies: Nausea, Abdominal Pain Musculoskeletal: Reports: Leg pain (Left knee); Denies: Neck pain Neurological: Denies: Weakness, Numbness Psych: Reports: Mood Normal Physical Examination Vital Signs Wt 187.2 T 96.5 P 63 RR 16 BP 140/82 O2 97% Pain 0 Fatigue 0 General Exam: Positive: Alert, Cooperative, No Acute Distress Eye Exam: Positive: PERRLA, EOMI ENT EXAM: Positive: Atraumatic, Mucous membr. moist/pink Neck Exam: Positive: Supple Chest Exam: Positive: Clear to auscultation Heart Exam: Positive: Rate Normal Breast Exam: Negative: Symmetric Bilaterally (Left breast ptotic, right breast lays higher @ 3:00 there is retraction about the surgical scar. There is no tenderness. The surgical site deep to the scar is WNL and exhibits only mild fibrosis. ), Lumps or Masses, Nipple Retraction, Skin Changes (No post RT sequelae evident on skin) Extremity Exam: Negative: Edema Skin Exam: Positive: Nl turgor and temperature Neuro Exam: Positive: Normal Gait, Normal Speech, Cranial Nerves 3-12 NL Psych Exam: Positive: Mental status NL Diagnostic and Laboratory Diagnostic Review Radiologic images, relevant labs and pathology reports were personally reviewed and discussed with Ms. Cardozo. Assessment and Plan Impression Assessment Ms. Cardozo is a 75 year old female with a history of pT2N0(sn)M0 ER/SD- HER2+ right breast cancer s/p lumpectomy and SLNB in 2008, followed by adjuvant chemotherapy, HER2-directed systemic therapy, and WBI to 48.6 Gy in 27 fractions with an additional 12 Gy in 6 fractions to the tumor bed completed 07/15/09. She has recently been diagnosed with a mammographically detected, phenotypically distinct, second right breast cancer s/p lumpectomy on 03/03/20 @ [facility], [id number] ER/SD+ HER2- Grade 2 with negative margins. She completed adjuvant RT 40 Gy in 15 fractions with VMAT reirradiation on 05/14/20. She is doing well overall. She would benefit from reconstruction with Dr. Black, which she is trying to arrange. I think her cosmetic outcome could be greatly improved with a left mastopexy and possibly fat transfer on the right to fill the surgical defect if able. Scarring may complicate this as she does have some fibrosis deep to the incision @ 3:00 on the right, but the overall quality of the remaining right breast tissue is excellent. She has a recent negative mammogram and no evidence of recurrent disease on exam today. Thus I will see her in 6 months time and if all is well then, I can see her annually thereafter in effort to share follow up with her other providers and minimize additional burdensome appointments. Performance Status ECOG 0 Plan Follow up in 6 months Ms. Cardozo was encouraged to call with questions or concerns in the interim period. Billing Statement Total time of [26] minutes was spent preparing for the visit [3], obtaining HPI [5], examining the patient [3], reviewing diagnostic tests [2], discussing management options [4], coordinating care [1], and writing this note [8]. LISA GARCIA MD Nov 18, 2020 11:24
== END ==
LOC: M ONCR 09:49
PROVIDERS: ATTEND General Practice
DX: C50.311 Malignant neoplasm of lower-inner quadrant of right female breast (principal); Z79.899 Other long term (current) drug therapy; Z92.21 Personal history of antineoplastic chemotherapy; Z92.3 Personal history of irradiation

== ENCOUNTER → 2021-05-18 | Outpatient (CLI) | payer MEDICARE, OTHER ==
[~2021-05-18] MED LIST changes: +GABA-282 PO; +ZETI10TA16 PO
--- NOTE | 2021-05-18 09:47 | RADONC ---
Radiation Oncology Hx/FUP Radiation Oncology Hx/FUP Date of Service: May 18, 2021 Pt Identifier Cindy Cardozo is a 75 year old female seen for a followup visit today at the department of radiation oncology for a history of pT2N0(sn)M0 ER/GA- HER2+ right breast cancer s/p lumpectomy and SLNB in 2008, followed by adjuvant chemotherapy, HER2-directed systemic therapy, and WBI to 48.6 Gy in 27 fractions with an additional 12 Gy in 6 fractions to the tumor bed completed 07/15/09. She has recently been diagnosed with a mammographically detected, phenotypically distinct, second right breast cancer s/p lumpectomy on 03/03/20 @ [facility], [id number] ER/GA+ HER2- Grade 2 with negative margins. She completed adjuvant RT 40 Gy in 15 fractions with VMAT reirradiation on 05/14/20. Diagnosis/Treatment History Oncologic History 12/03/08 Right lumpectomy SLNB pT2N0(sn)M0 ER/GA- HER2+ Grade 2. 4.5 cm 04/25/09 TP chemotherapy complete 07/15/09 Completed WBI 48.6 Gy in 27 fractions and 12 Gy in 6 fractions to the tumor bed 12/18/19 Right screening mammogram with calcifications lower inner breast 01/22/20 Biopsy at [facility] with IDC ER/GA+ HER2- and DCIS 03/03/20 Lumpectomy @ [facility] [id number] Grade 2 negative margins 04/21/20-05/14/20 Adjuvant RT 40 Gy in 15 fractions with VMAT (reirradiation) 10/19/20 Mammogrm ([facility]) negative Survivorship: Test Due Next Last result Notes TSH, T4* 6m post-tx, then q1y N/A Carotid US* q10 y post-tx N/A Smoking cessation Assess annually if applicable N/A Screening CT chest q1y if eligible per USPSTF N/A Mammograms Min q1y, if breast conservation ~10/2021 Negative CBC,CMP, Lipids q1y 2021 DEXA q2y if on AI Per medical oncology (on AI) Interval History Cindy feels well. She had her left knee replaced over the summer which was complicated by terrible nerve pain. This has responded well however to gabapentin 300 mg BID. She has no breast complaints today. Still contemplating mastopexy/reconstruction. She is tolerating letrozole however notes it is thinning her hair. Appetite and weight stable. Current Therapy Letrozole Stage [id number] ER/GA+ HER2- Grade 2 stag IA Social History: Non smoker Non drinker Allergies / Meds Allergies: Coded Allergies: No Known Allergies (Verified , 07/16/20) Home Meds Active Scripts Letrozole (Letrozole) 2.5 Mg Tablet, 2.5 MG PO DAILY, #90 TAB 2 Refills Prov:JEREMIAH OLIVERA MD FACP 05/05/21 Reported Medications Gabapentin (Gabapentin) 300 Mg Capsule, 300 MG PO BID for 30 Days, #60 CAP 05/18/21 Ezetimibe (Zetia) 10 Mg Tablet, 1 TAB PO DAILY for 30 Days, #30 TAB 02/26/21 Covid-19 Vacc,Mrna(Moderna)/Pf (Moderna Covid19 Vacc(Unapprov)) 100 Mcg/0.5 Ml Vial, 100 MCG IM, VIAL 10/22/20 Multivitamin (Multivitamin) 1 Each Tablet, 1 EACH PO DAILY, TAB 05/22/20 Solifenacin Succinate (Vesicare) 5 Mg Tablet, 5 MG PO DAILY for 30 Days, #30 TAB 04/11/19 Calcium Carbonate (Calcium) 600 Mg Tab, 1200 MG PO DAILY, TAB 03/15/18 Metoprolol Succinate (Metoprolol Succinate) 100 Mg Tab, 100 MG PO DAILY, TAB 03/15/18 Hydrochlorothiazide (Hydrochlorothiazide) 25 Mg Tab, 25 MG PO DAILY, TAB 03/15/18 Losartan Potassium (Losartan Potassium) 100 Mg Tab, 100 MG PO DAILY for 30 Days, #30 TAB 03/15/18 Review of Systems Review of Systems Constitutional: Denies: Fatigue, Weight Loss Eyes: Denies: Pain HEENT: Denies: Head Aches Skin: Denies: Rash Breast: Reports: Breast Skin Changes (Pigment changes right breast); Denies: New Breast Lumps / Masses, Nipple Retraction, Nipple Discharge, Breast Pain or Tenderness Musculoskeletal: Reports: Leg pain Neurological: Denies: Weakness, Numbness Psych: Reports: Mood Normal Physical Examination Vital Signs Ht 63" Wt 182 lbs BMI 32 T 97.4 P 57 RR 16 BP 160/88 O2 96% Pain 0 Fatigue 0 General Exam: Alert, Cooperative, No Acute Distress Eye Exam: PERRLA, EOMI ENT EXAM: Atraumatic Neck Exam: Negative: Lymphadenopathy Chest Exam: Clear to auscultation Heart Exam: Rate Normal Breast Exam: Skin Changes (Hyperpigmentation inferomedial right breast); Negative: Symmetric Bilaterally (Left breast ptotic), Lumps or Masses (Palpable fibrosis @ surgical site right breast, surrounding tissue normal feeling, no lumps), Nipple Retraction, Nipple Discharge Extremity Exam: Negative: Edema Skin Exam: Negative: Rash Neuro Exam: Normal Gait, Normal Speech, Cranial Nerves 3-12 NL Psych Exam: Mental status NL Diagnostic and Laboratory Diagnostic Review Radiologic images, relevant labs and pathology reports were personally reviewed and discussed with Ms. Cardozo. Assessment and Plan Impression Assessment Ms. Cardozo is a 75 year old female with a history of pT2N0(sn)M0 ER/GA- HER2+ right breast cancer s/p lumpectomy and SLNB in 2008, followed by adjuvant chemotherapy, HER2-directed systemic therapy, and WBI to 48.6 Gy in 27 fractions with an additional 12 Gy in 6 fractions to the tumor bed completed 07/15/09. She has recently been diagnosed with a mammographically detected, phenotypically distinct, second right breast cancer s/p lumpectomy on 03/03/20 @ [facility], [id number] ER/GA+ HER2- Grade 2 with negative margins. She completed adjuvant RT 40 Gy in 15 fractions with VMAT reirradiation on 05/14/20. Doing well, NIKO on exam and recent mammogram @ [facility]. Continuing AI, no problems. Contemplating mastopexies, averse to idea of further surgery at the moment, given her left TKA experience. Will see again in 6 months time. Performance Status ECOG 0 Plan Follow up in 6 months Ms. Cardozo was encouraged to call with questions or concerns in the interim period. Billing Statement Total time of [23] minutes was spent preparing for the visit [1], obtaining HPI [6], examining the patient [2], reviewing diagnostic tests [1], discussing management options [6], coordinating care [1], and writing this note [6]. LISA GARCIA MD May 18, 2021 09:47
== END ==
LOC: M ONCR 08:36
PROVIDERS: ATTEND General Practice
DX: C50.311 Malignant neoplasm of lower-inner quadrant of right female breast (principal); Z92.3 Personal history of irradiation; Z92.21 Personal history of antineoplastic chemotherapy; Z79.899 Other long term (current) drug therapy

== ENCOUNTER → 2021-08-20 | Outpatient (REF) | payer MEDICARE, OTHER ==
[~2021-08-20] MED LIST changes: +LOSA100T45 PO; -LOSA100T50 PO
== END ==
LOC: M LAB REF 09:52
PROVIDERS: ATTEND Internal Medicine Medical Oncology
DX: C50.911 Malignant neoplasm of unspecified site of right female breast (principal)

== ENCOUNTER → 2021-11-17 | Outpatient (CLI) | payer MEDICARE, OTHER ==
[~2021-11-17] MED LIST changes: +EXEM25TA PO
== END ==
LOC: M ONCR 08:59
PROVIDERS: ATTEND General Practice
DX: C50.311 Malignant neoplasm of lower-inner quadrant of right female breast (principal); Z79.899 Other long term (current) drug therapy; Z92.3 Personal history of irradiation

== ENCOUNTER → 2022-09-05 | Outpatient (CLI) | payer MEDICARE, OTHER ==
[~2022-09-05] MED LIST changes: +AMLO1TAB24; +EZET-18 PO; -VYTO10TA22 PO
== END ==
LOC: M WHC 10:34
PROVIDERS: ATTEND Nurse Practitioner
DX: C50.919 Malignant neoplasm of unspecified site of unspecified female breast (principal)

== ENCOUNTER → 2022-11-17 | Outpatient (CLI) | payer MEDICARE, OTHER ==
[~2022-11-17] MED LIST changes: -LOSA100T45 PO; +LOSA100T46 PO
== END ==
LOC: M ONCR 09:02
PROVIDERS: ATTEND General Practice
DX: C50.311 Malignant neoplasm of lower-inner quadrant of right female breast (principal); Z71.2 Person consulting for explanation of examination or test findings; Z79.811 Long term (current) use of aromatase inhibitors; Z79.899 Other long term (current) drug therapy; Z92.21 Personal history of antineoplastic chemotherapy; Z92.3 Personal history of irradiation

== ENCOUNTER → 2023-11-21 | Outpatient (CLI) | payer MEDICARE, OTHER ==
[~2023-11-21] MED LIST changes: +EZET10TA58 PO; -ZETI10TA16 PO
== END ==
LOC: M ONCR 08:52
PROVIDERS: ATTEND General Practice
DX: C50.911 Malignant neoplasm of unspecified site of right female breast (principal); Z71.2 Person consulting for explanation of examination or test findings; Z79.811 Long term (current) use of aromatase inhibitors; Z79.899 Other long term (current) drug therapy; Z92.21 Personal history of antineoplastic chemotherapy; Z92.3 Personal history of irradiation

== ENCOUNTER → 2024-09-10 | Outpatient (CLI) | payer MEDICARE, OTHER ==
[~2024-09-10] MED LIST changes: +GABA-1172 PO; -GABA-282 PO
== END ==
LOC: M WHC 14:20
PROVIDERS: ATTEND Internal Medicine Hematology & Oncology
DX: C50.919 Malignant neoplasm of unspecified site of unspecified female breast (principal); Z13.820 Encounter for screening for osteoporosis; M85.852 Other specified disorders of bone density and structure, left thigh; M85.851 Other specified disorders of bone density and structure, right thigh

== ENCOUNTER → 2024-12-26 | Outpatient (CLI) | payer MEDICARE, OTHER | LOC: M SOG 07:17 | PROVIDERS: ATTEND Physician Assistant | DX: M19.041 Primary osteoarthritis, right hand (principal) ==